=== PATIENT | male | born 1990 | race Caucasian/White ===

== ENCOUNTER 2018-05-12 15:01 | Inpatient (IN) | payer BC, OTHER ==
[2018-05-12] MEDS ORDERED: Bupivacaine 0.5% 50 ML MDV ONE (15:04)
[2018-05-12] MEDS ORDERED: Lidocaine 1% with EPINEPHrine 1:100,000 50 ML MDV ONE (15:04)
[2018-05-12] MEDS ORDERED: Lactated Ringers 1,000 ML IV SCH ×2 (15:30→17:45)
[2018-05-12] MEDS ORDERED: Propofol 200 MG/20 ML SDV ONE ×3 (15:31→16:09)
[2018-05-12] MEDS ORDERED: fentaNYL 100 MCG/2 ML SDV ONE (15:31)
[2018-05-12] MEDS ORDERED: Midazolam 1 MG/ML 2 ML SDV ONE ×2 (15:31→15:59)
[2018-05-12] MEDS ORDERED: Clindamycin Phosphate 900 MG in Sodium Chloride 0.9% 100 ML IV ONE (16:00)
[2018-05-12] MEDS ORDERED: Levofloxacin/Dextrose 5%-Water 500 MG in Premix Bag 1 BAG IV ONE (16:00)
[2018-05-12] MEDS ORDERED: Ondansetron 4 MG/2 ML SDV IVPUSH PRN (17:11)
[2018-05-12] MEDS: Acetaminophen/HYDROcodone 325-5 MG Tab PO PRN ×2 (17:49→21:54)
[2018-05-12] MEDS: Piperacillin/Tazobactam 3.375 GM in Sodium Chloride 0.9% 50 ML IV SCH ×2 (18:07→23:12)
--- NOTE | 2018-05-12 18:07 | PCM.HP ---
H&P History of Present Illness - General Date of Service: 05/12/18 Admit Problem/Dx: Admission Diagnosis/Problem Admission Diagnosis/Problem Abscess of abdominal wall Source of Information: Patient, Provider History Limitations: Reports: No Limitations - History of Present Illness Initial Comments - Free Text/Narative: This 27 year old white male told me he has had a painful suprapubic area associated he thinks with an ingrown hair. He developed pain, swelling and erythema in the area with so much pain that he has difficulty walking. He has not felt chilled. He went to the [facility] walk in clinic and was referred to surgery for drainage of this obvious suprapubic abscess. Onset of Symptoms: Reports: Gradual (Over five days. He says he "squeezed the ingrown hair trying to clear it.") Duration of Symptoms: Reports: Day(s): (Five), Getting Worse Location: Reports: Abdomen (Suprapubic area. ) Quality: Reports: Burning, Sharp Severity: Severe Improves with: Reports: None Worsens with: Reports: Other (Touch) Associated Symptoms: Reports: No Other Symptoms Right Lower Abdomen Pain Score (Numeric/FACES): 4 - Related Data Allergies/Adverse Reactions: Allergies Allergy/AdvReac Type Severity Reaction Status Date / Time No Known Allergies Allergy Verified 05/12/18 15:20 Home Medications: Home Meds NK [No Known Home Meds] 01/09/13 [History] Past Medical History - Past Health History Medical/Surgical History: Denies Medical/Surgical History Gastrointestinal History: Reports: GERD Musculoskeletal History: Reports: Other (See Below) Other Musculoskeletal History: chronic knee pain, from accident last summer, left knee torn ACL Neurological History: Reports: Concussion, Migraines Dermatologic History: Reports: Other (See Below) Other Dermatologic History: abdominal abscess - Past Surgical History Neurological Surgical History: Reports: None Social & Family History - Family History Family Medical History: Noncontributory - Tobacco Use Smoking Status *Q: Current Every Day Smoker Years of Tobacco use: 10 Packs/Tins Daily: 0.2 - Caffeine Use Caffeine Use: Reports: Soda - Recreational Drug Use Recreational Drug Use: Yes Drug Use in Last 12 Months: Yes Recreational Drug Type: Reports: Marijuana/Hashish Other Recreational Drug Type: 3-4 days since last marijuana use H&P Review of Systems - Review of Systems: Review Of Systems: See Below General: Reports: Other (Suprapubic pain) HEENT: Reports: No Symptoms Pulmonary: Reports: No Symptoms Cardiovascular: Reports: No Symptoms Gastrointestinal: Reports: No Symptoms Genitourinary: Reports: No Symptoms Musculoskeletal: Reports: No Symptoms Skin: Reports: Erythema (Suprapubic), Other (Suprapubic abscess, induration measures 11 cm transverse and 6 cm longitudinal. ) Psychiatric: Reports: No Symptoms Neurological: Reports: No Symptoms Hematologic/Lymphatic: Reports: No Symptoms Immunologic: Reports: No Symptoms Exam - Exam Exam: See Below - Vital Signs Vital Signs: Last Vital Signs Temp 100.8 F H 05/12/18 17:54 Pulse 111 H 05/12/18 17:54 Resp 18 05/12/18 17:54 BP 111/77 05/12/18 17:54 Pulse Ox 96 05/12/18 17:54 Weight: 140 lb 0.002 oz - Exam Quality Assessment: DVT Prophylaxis, Skin Breakdown (Suprapubic abscess) HEENT: Conjunctiva Clear, Hearing Intact Neck: Supple, Trachea Midline Lungs: Clear to Auscultation Cardiovascular: Regular Rate, Regular Rhythm, Tachycardia GI/Abdominal Exam: Normal Bowel Sounds, Soft, Tender (Suprapubic area. ) Back Exam: Normal Inspection, Full Range of Motion Extremities: Normal Inspection (Erythema in upper thighs right greater than left ) Skin: Warm, Other (Suprapubic abscess 11X6 cm with erythema of the area and upper thighs.) Neuro Extensive - Mental Status: Alert, Oriented x3, Normal Mood/Affect, Normal Cognition Psychiatric: Alert, Normal Affect, Normal Mood - Patient Data Lab Results Last 24 hrs: Laboratory Results - last 24 hr 05/12/18 05/12/18 05/12/18 Range/Units 15:00 15:00 15:14 WBC 35.4 H* (4.5-11.0) K/uL RBC 5.17 (4.30-5.90) M/uL Hgb 15.0 (12.0-15.0) g/dL Hct 46.1 (40.0-54.0) % MCV 89 (80-98) fL MCH 29 (27-31) pg MCHC 33 (32-36) % Plt Count 291 (150-400) K/uL Sodium 135 L (140-148) mmol/L Potassium 3.3 L (3.6-5.2) mmol/L Chloride 95 L (100-108) mmol/L Carbon Dioxide 27 (21-32) mmol/L Anion Gap 16.3 H (5.0-14.0) mmol/L BUN 12 (7-18) mg/dL Creatinine 1.2 (0.8-1.3) mg/dL Est Cr Clr Drug Dosing 82.32 mL/min Estimated GFR (MDRD) > 60 (>60) Glucose 110 H (74-106) mg/dL Lactic Acid 2.3 H (0.4-2.0) mmol/L Calcium 9.1 (8.5-10.1) mg/dL Total Bilirubin 1.0 (0.2-1.0) mg/dL AST 15 (15-37) U/L ALT 15 (12-78) U/L Alkaline Phosphatase 72 (46-116) U/L Total Protein 7.7 (6.4-8.2) g/dL Albumin 3.8 (3.4-5.0) g/dL Globulin 3.9 H (2.3-3.5) g/dL Albumin/Globulin Ratio 1.0 L (1.2-2.2) Result Diagrams: 05/12/18 15:00 05/12/18 15:00 Gregg Results Last 24 hrs: Microbiology 05/12/18 16:40 Gram Stain - Final Groin, Unspecified - Problem List (1) Abscess SNOMED Code(s): 360259258 ICD Code: L02.91 - CUTANEOUS ABSCESS, UNSPECIFIED Status: Acute Current Visit: Yes (2) Cellulitis of abdominal wall SNOMED Code(s): 04215196 ICD Code: L03.311 - CELLULITIS OF ABDOMINAL WALL Status: Acute Current Visit: Yes Problem List Initiated/Reviewed/Updated: Yes Orders Last 24hrs: Active Orders 24 hr Category Date Time Status Patient Status [ADT] Routine ADT 05/12/18 17:11 Active Ambulate [RC] ASDIRECTED Care 05/12/18 17:11 Active Ambulate [RC] PER UNIT ROUTINE Care 05/12/18 17:11 Active Antiembolic Devices [RC] .Routine Care 05/12/18 17:16 Active Dietary Supplements [RC] BIDMEALS Care 05/12/18 17:35 Active Dorsiflex/Plantar flex x 10 [RC] QSHIFT Care 05/12/18 17:11 Active Head of Bed Elevation [RC] CONTINUOUS Care 05/12/18 17:11 Active IS (RT) [RT Incentive Spirometry] [RC] ASDIRECTED Care 05/12/18 08:00 Active Intake and Output [RC] Q4HR Care 05/12/18 17:12 Active Notify Provider Consults [RC] ASDIRECTED Care 05/12/18 17:38 Active Notify Provider Vital Signs [RC] PRN Care 05/12/18 17:12 Active Oxygen Therapy [RC] PRN Care 05/12/18 17:11 Active Pneumonia Education [RC] UPON Care 05/12/18 17:11 Active RT Incentive Spirometry [RC] Q1HWA Care 05/12/18 17:11 Active Turn, Cough, Deep Breathe [RC] Q1HWA Care 05/12/18 17:11 Active Up With Assistance [RC] ASDIRECTED Care 05/12/18 17:11 Active Up ad Sofia [RC] ASDIRECTED Care 05/12/18 17:11 Active Up to Chair [RC] TIDMEALS Care 05/12/18 17:11 Active VTE/DVT Education [RC] Click to Edit Care 05/12/18 17:16 Active Vital Signs [RC] PER UNIT ROUTINE Care 05/12/18 17:11 Active Consult to Physician [CONS] Urgent Cons 05/12/18 17:36 Ordered Respiratory Care Assess and Treatment [CONS] Routine Cons 05/12/18 17:11 Active Regular Diet [DIET] Diet 05/12/18 Dinner Active BASIC METABOLIC PANEL,BMP [CHEM] AM Lab 05/13/18 05:11 Ordered CBC WITH AUTO DIFF [HEME] AM Lab 05/13/18 05:11 Ordered CULTURE ANAEROBIC [RM] Routine Lab 05/12/18 16:40 Results CULTURE BLOOD [BC] Urgent Lab 05/12/18 15:37 Received CULTURE BLOOD [BC] Urgent Lab 05/12/18 15:37 Received CULTURE WOUND + SMEAR [RM] Routine Lab 05/12/18 16:40 Results LACTIC ACID [CHEM] Routine Lab 05/12/18 22:00 Ordered LACTIC ACID [CHEM] Routine Lab 05/13/18 05:10 Ordered Acetaminophen/HYDROcodone [[place]one 325-5 MG] Med 05/12/18 17:11 Active 2 tab PO Q4H PRN Docusate Sodium [Colace] Med 05/12/18 17:11 Active 100 mg PO BID PRN Lactated Ringers [Ringers, Lactated] 1,000 ml Med 05/12/18 17:45 Active IV ASDIRECTED Linezolid [Zyvox] 600 mg Med 05/12/18 18:00 Active Premix Bag 1 bag IV Q12H Ondansetron [Zofran] Med 05/12/18 17:11 Active 4 mg IVPUSH Q6H PRN Piperacillin/Tazobactam [Zosyn] 3.375 gm Med 05/12/18 18:00 Active Sodium Chloride 0.9% [Normal Saline] 50 ml IV Q6H Blood Culture x2 Reflex Set [OM.PC] Urgent Oth 05/12/18 15:29 Ordered DVT/VTE Prophylaxis Reflex [OM.PC] Per Unit Routine Oth 05/12/18 17:14 Ordered SCD [Sequential Compression Device] [OM.PC] Routine Oth 05/12/18 08:00 Ordered Sequential Compression Device [OM.PC] Routine Oth 05/12/18 17:11 Ordered Resuscitation Status Routine Resus Stat 05/12/18 17:11 Ordered Medication Orders Hydrocodone Bitart/Acetaminophen ([place] 325-5 Mg) 2 tab PO Q4H PRN PRN Reason: Pain (moderate 4-6) Last Admin: 05/12/18 17:49 Dose: 2 tab Docusate Sodium (Colace) 100 mg PO BID PRN PRN Reason: Constipation Lactated Ringer's (Ringers, Lactated) 1,000 mls @ 500 mls/hr IV ASDIRECTED [facility] Last Admin: 05/12/18 18:02 Dose: 500 mls/hr Linezolid 600 mg/ Premix 300 mls @ 300 mls/hr IV Q12H [facility] Stop: 05/18/18 06:59 Piperacillin Sod/Tazobactam (Sod 3.375 gm/ Sodium Chloride) 50 mls @ 100 mls/ hr IV Q6H [facility] Stop: 05/18/18 12:29 Ondansetron HCl (Zofran) 4 mg IVPUSH Q6H PRN PRN Reason: Nausea/Vomiting Assessment/Plan Comment:: Abscess of suprapubic area with cellulitis. Admit to OR for incision and drainage and then into hospital for IV antibiotics.
[2018-05-12] MEDS ORDERED: Potassium Chloride 20 MEQ Tab.ER PO ONE (18:38)
--- NOTE | 2018-05-12 18:52 | OR ---
DATE OF PROCEDURE: 05/12/2018 PREOPERATIVE DIAGNOSES: Suprapubic abscess with cellulitis, sepsis. POSTOPERATIVE DIAGNOSES: Suprapubic abscess with cellulitis, sepsis. PROCEDURE PERFORMED: Incision and drainage of a suprapubic abscess. The induration measured 11 x 6 cm. An elliptical incision of 7 cm was used to drain the purulent material SURGEON: Mingo Gallardo MD. ANESTHESIA: IV anesthesia with monitored anesthesia care. INDICATION: This 27-year-old white male told me he has had five days of increasing pain in his suprapubic area. He thinks it is related to an ingrown hair. He did try to squeeze the area. The pain became so bad that it caused him to come to the walk-in clinic today, who referred him to surgery for drainage of an abscess. In the walk-in clinic, he was noted to have a temperature of 99.6. The area of erythema over his suprapubic area goes into his upper thighs. There was a large area of deep erythema with induration in the suprapubic area, with induration measuring 11 cm transversely and 6 cm longitudinally. There appears to be area of necrosis in the very middle, which is fairly small, consistent with ingrown hair or spider bite, which became severely infected. He was brought to the hospital, into the outpatient area to get prepared for surgery with IV antibiotics given. He had shaking chills. He was found to have a white count of 35,400. His lactic acid was 2.3. He was taken to the operating room for incision and drainage of the suprapubic abscess. I counseled him for surgery with the possibility of having to do extensive resection if we encountered things like necrotizing fasciitis, and he gave his informed consent to proceed. DESCRIPTION OF PROCEDURE: After adequate IV anesthesia was obtained, the patient's lower abdomen, groin, and genitalia as well as upper thighs were prepped and draped in the usual sterile fashion. Time-out was held. Lidocaine 1% with epinephrine in a 50:50 mix with 0.5% Marcaine was infiltrated over the area of maximal induration in the suprapubic area. A transverse elliptical incision was made about 7 cm long. The overlying skin was excised and sent to pathology. We encountered purulent material, however, it appeared to be invading the tissues. There was no obvious abscess cavity. We dissected it and broke all the little loculations up. Aerobic and anaerobic cultures as well as Gram stain were sent to the laboratory. The incision was irrigated and suctioned dry. We packed it with 0.5 inch iodoform gauze. A sterile dressing was applied. He tolerated the procedure well and was taken to the recovery room in fair condition having tolerated the procedure well. Mingo Gallardo MD /[id number] MTDOpal
--- NOTE | 2018-05-12 19:14 | PCM.CONSN ---
- General Info Date of Service: 05/12/18 Functional Status: Reports: Tolerating Diet, Incentive Spirometry - Review of Systems General: Reports: Fever (T-max 38.2), Fatigue HEENT: Reports: No Symptoms Pulmonary: Reports: Cough, Other (tobacco use, declines nicotine patch) Cardiovascular: Reports: No Symptoms Gastrointestinal: Reports: Abdominal Pain Genitourinary: Reports: No Symptoms Musculoskeletal: Reports: No Symptoms Skin: Reports: No Symptoms Neurological: Reports: No Symptoms Psychiatric: Reports: No Symptoms - Patient Data Vitals - Most Recent: Last Vital Signs Temp 38.2 C H 05/12/18 17:54 Pulse 103 H 05/12/18 18:25 Resp 16 05/12/18 18:25 BP 122/69 05/12/18 18:25 Pulse Ox 98 05/12/18 18:25 Weight - Most Recent: 63.503 kg Lab Results Last 24 Hours: Laboratory Results - last 24 hr 05/12/18 05/12/18 05/12/18 Range/Units 15:00 15:00 15:14 WBC 35.4 H* (4.5-11.0) K/uL RBC 5.17 (4.30-5.90) M/uL Hgb 15.0 (12.0-15.0) g/dL Hct 46.1 (40.0-54.0) % MCV 89 (80-98) fL MCH 29 (27-31) pg MCHC 33 (32-36) % Plt Count 291 (150-400) K/uL Sodium 135 L (140-148) mmol/L Potassium 3.3 L (3.6-5.2) mmol/L Chloride 95 L (100-108) mmol/L Carbon Dioxide 27 (21-32) mmol/L Anion Gap 16.3 H (5.0-14.0) mmol/L BUN 12 (7-18) mg/dL Creatinine 1.2 (0.8-1.3) mg/dL Est Cr Clr Drug Dosing 82.32 mL/min Estimated GFR (MDRD) > 60 (>60) Glucose 110 H (74-106) mg/dL Lactic Acid 2.3 H (0.4-2.0) mmol/L Calcium 9.1 (8.5-10.1) mg/dL Total Bilirubin 1.0 (0.2-1.0) mg/dL AST 15 (15-37) U/L ALT 15 (12-78) U/L Alkaline Phosphatase 72 (46-116) U/L Total Protein 7.7 (6.4-8.2) g/dL Albumin 3.8 (3.4-5.0) g/dL Globulin 3.9 H (2.3-3.5) g/dL Albumin/Globulin Ratio 1.0 L (1.2-2.2) Gregg Results Last 24 Hours: Microbiology 05/12/18 16:40 Gram Stain - Final Groin, Unspecified Med Orders - Current: Current Medications Hydrocodone Bitart/Acetaminophen ([place] 325-5 Mg) 2 tab PO Q4H PRN PRN Reason: Pain (moderate 4-6) Last Admin: 05/12/18 17:49 Dose: 2 tab Docusate Sodium (Colace) 100 mg PO BID PRN PRN Reason: Constipation Hydromorphone HCl (Dilaudid) 1 mg IVPUSH Q3H PRN PRN Reason: Abdominal Pain Lactated Ringer's (Ringers, Lactated) 1,000 mls @ 500 mls/hr IV ASDIRECTED [facility] Last Admin: 05/12/18 18:02 Dose: 500 mls/hr Linezolid 600 mg/ Premix 300 mls @ 300 mls/hr IV Q12H [facility] Stop: 05/18/18 06:59 Piperacillin Sod/Tazobactam (Sod 3.375 gm/ Sodium Chloride) 50 mls @ 100 mls/ hr IV Q6H [facility] Stop: 05/18/18 12:29 Last Admin: 05/12/18 18:07 Dose: 100 mls/hr Ondansetron HCl (Zofran) 4 mg IVPUSH Q6H PRN PRN Reason: Nausea/Vomiting Discontinued Medications Bupivacaine HCl (Marcaine 0.5%) Confirm Administered Dose 50 ml .ROUTE .STK-MED ONE Stop: 05/12/18 15:05 Last Admin: 05/12/18 16:23 Dose: 5 ml Fentanyl (Sublimaze) Confirm Administered Dose 100 mcg .ROUTE .STK-MED ONE Stop: 05/12/18 15:32 Lactated Ringer's (Ringers, Lactated) 1,000 mls @ 150 mls/hr IV ASDIRECTED [facility] Last Admin: 05/12/18 15:46 Dose: 500 mls/hr Clindamycin Phosphate 900 mg/ (Sodium Chloride) 106 mls @ 200 mls/hr IV ONETIME ONE Stop: 05/12/18 16:31 Last Admin: 05/12/18 15:46 Dose: 200 mls/hr Levofloxacin/Dextrose 500 mg/ (Premix) 100 mls @ 100 mls/hr IV ONETIME ONE Stop: 05/12/18 16:59 Last Admin: 05/12/18 15:46 Dose: 100 mls/hr Lidocaine/Epinephrine (Xylocaine 1% With Epinephrine 1:100,000) Confirm Administered Dose 50 ml .ROUTE .STK-MED ONE Stop: 05/12/18 15:05 Last Admin: 05/12/18 16:23 Dose: 5 ml Midazolam HCl (Versed 1 Mg/Ml) Confirm Administered Dose 2 mg .ROUTE .STK-MED ONE Stop: 05/12/18 15:32 Midazolam HCl (Versed 1 Mg/Ml) Confirm Administered Dose 2 mg .ROUTE .STK-MED ONE Stop: 05/12/18 16:00 Potassium Chloride (Klor-Con M20) 20 meq PO ONETIME ONE Stop: 05/12/18 18:39 Propofol (Diprivan 20 Ml) Confirm Administered Dose 200 mg .ROUTE .STK-MED ONE Stop: 05/12/18 15:32 Propofol (Diprivan 20 Ml) Confirm Administered Dose 200 mg .ROUTE .STK-MED ONE Stop: 05/12/18 16:01 Propofol (Diprivan 20 Ml) Confirm Administered Dose 200 mg .ROUTE .STK-MED ONE Stop: 05/12/18 16:10 - Exam Quality Assessment: DVT Prophylaxis (SCD) General: Alert, Oriented, Cooperative, Mild Distress (reports pain not controlled with Hydrocodone 5/325mg 2 tabs po) HEENT: Pupils Equal, Pupils Reactive, EOMI, Mucous Membr. Moist/[place] Lungs: Clear to Auscultation, Normal Respiratory Effort, Other (poor cough noted ) Cardiovascular: Regular Rate, Regular Rhythm, No Murmurs GI/Abdominal Exam: Other (abdominal dressing, with small amount of bleeding thru ABD dressing. abdomen is painful. reports feeling a lot of pressure in low abdomen.) (Male) Exam: Circumcised, Scrotal Swelling (scrotal and penis with edema) Extremities: Normal Inspection, Normal Range of Motion, Non-Tender, No Pedal Edema, Normal Capillary Refill Peripheral Pulses: 2+: Radial (L), Radial (R), Dorsalis Pedis (L), Dorsalis Pedis (R) Skin: Warm, Dry, Other (I&D of abscess low pelvis/groin) Wound/Incisions: Drainage (red small amount thru ABD dressing. just return from surgery.) Neurological: No New Focal Deficit, Normal Speech, Normal Tone, Strength Equal Bilateral Psy/Mental Status: Alert, Normal Affect, Normal Mood Consult PN Assessment/Plan POD#: 0 Procedures: Procedures CHEST X-RAY 2VW FRONTAL&LATL (01/21/15) EMERGENCY DEPT VISIT (10/21/15) EMERGENCY DEPT VISIT (01/21/15) EMERGENCY DEPT VISIT (02/02/13) EMERGENCY DEPT VISIT (01/09/13) THER/PROPH/DIAG INJ SC/IM (10/21/15) X-RAY EXAM KNEE 4 OR MORE (08/12/14) X-RAY EXAM OF KNEE 3 (10/21/15) (1) Abscess of suprapubic region SNOMED Code(s): 18938189107972061 Code(s): L02.219 - CUTANEOUS ABSCESS OF TRUNK, UNSPECIFIED Priority: High Current Visit: Yes (2) Sepsis SNOMED Code(s): 37605421 Code(s): A41.9 - SEPSIS, UNSPECIFIED ORGANISM Priority: High Current Visit: Yes Qualifiers: Sepsis type: sepsis due to unspecified organism Qualified Code(s): A41.9 - Sepsis, unspecified organism (3) Hypokalemia SNOMED Code(s): 23530861 Code(s): E87.6 - HYPOKALEMIA Priority: Low Current Visit: Yes (4) Tobacco dependence due to cigarettes SNOMED Code(s): 96682993991555764 Code(s): F17.210 - NICOTINE DEPENDENCE, CIGARETTES, UNCOMPLICATED Priority : Low Current Visit: Yes Problem List Initiated/Reviewed/Updated: Yes My Orders Last 24 Hours: My Active Orders 05/12/18 19:07 HYDROmorphone [Dilaudid] 1 mg IVPUSH Q3H PRN Plan: S/P I&D Suprapubic abscess 11x6 cm, Sepsis -continue IV antibiotics -IV LR at 999/ml x 1 liter, then at rate 150ml/hr -medicate for pain. Hydrocodone po evry 4 hours prn -IV Dilaudid 1mg IV every 3 hrs prn for pain not controlled by Hydrocodone -advised to use IS -treat fever with Tylenol -monitor vital signs closely -Blood cultures x2 and wound cultures pending -Lactic acid at 2.3, repeat labs at 10 pm and 0500am -am labs CBC, BMP Hypokalemia, potassium 3.3 -order Potassium 20 meq po once -recheck potassium in am. Tobacco use -declines patch
[2018-05-12] MEDS: Linezolid 600 MG in Premix Bag 1 BAG IV SCH (19:36)
[2018-05-12] MEDS: HYDROmorphone 1 MG/ML Syringe IVPUSH PRN (21:39)
[2018-05-12] MEDS: Lactated Ringers 1,000 ML IV SCH (21:43)
[2018-05-13] MEDS: Acetaminophen/HYDROcodone 325-5 MG Tab PO PRN ×4 (02:18→15:54)
[2018-05-13] MEDS: Lactated Ringers 1,000 ML IV SCH ×2 (03:45→11:44)
[2018-05-13] MEDS: HYDROmorphone 1 MG/ML Syringe IVPUSH PRN ×3 (05:30→19:49)
[2018-05-13] MEDS: Piperacillin/Tazobactam 3.375 GM in Sodium Chloride 0.9% 50 ML IV SCH (05:33)
[2018-05-13] MEDS: Linezolid 600 MG in Premix Bag 1 BAG IV SCH ×2 (06:21→17:07)
--- NOTE | 2018-05-13 06:46 | PCM.SURGPN ---
- General Info Date of Service: 05/13/18 Date of Surgery/Procedure: 05/12/18 POD#: 1 Post-Op Diagnosis: Suprapubic abscess with cellulitis Admission Diagnosis/Problem: Sepsis affecting skin Functional Status: Reports: Pain Controlled, Tolerating Diet, Ambulating, Urinating, Incentive Spirometry - Review of Systems General: Reports: Other (Feels a little better) HEENT: Reports: No Symptoms Pulmonary: Reports: No Symptoms Cardiovascular: Reports: No Symptoms Gastrointestinal: Reports: No Symptoms Genitourinary: Reports: No Symptoms Musculoskeletal: Reports: No Symptoms Skin: Reports: Other (Erythema still present. Dressing with drainage. ) Neurological: Reports: No Symptoms Psychiatric: Reports: No Symptoms - Patient Data Vitals - Most Recent: Last Vital Signs Temp 99.5 F 05/13/18 03:00 Pulse 88 05/13/18 03:00 Resp 16 05/13/18 03:00 BP 109/64 05/13/18 03:00 Pulse Ox 97 05/13/18 03:00 Weight - Most Recent: 140 lb 0.002 oz I&O - Last 24 Hours: Intake & Output 05/12/18 05/12/18 05/13/18 14:59 22:59 06:59 Intake Total 300 3270 Output Total 700 Balance -400 3270 Lab Results Last 24 Hrs: Laboratory Results - last 24 hr 05/12/18 05/12/18 05/12/18 Range/Units 15:00 15:00 15:14 WBC 35.4 H* (4.5-11.0) K/uL RBC 5.17 (4.30-5.90) M/uL Hgb 15.0 (12.0-15.0) g/dL Hct 46.1 (40.0-54.0) % MCV 89 (80-98) fL MCH 29 (27-31) pg MCHC 33 (32-36) % Plt Count 291 (150-400) K/uL Neut % (Auto) (36-66) % Lymph % (Auto) (24-44) % Long % (Auto) (2-6) % Eos % (Auto) (2-4) % Baso % (Auto) (0-1) % Sodium 135 L (140-148) mmol/L Potassium 3.3 L (3.6-5.2) mmol/L Chloride 95 L (100-108) mmol/L Carbon Dioxide 27 (21-32) mmol/L Anion Gap 16.3 H (5.0-14.0) mmol/L BUN 12 (7-18) mg/dL Creatinine 1.2 (0.8-1.3) mg/dL Est Cr Clr Drug Dosing 82.32 mL/min Estimated GFR (MDRD) > 60 (>60) Glucose 110 H (74-106) mg/dL Lactic Acid 2.3 H (0.4-2.0) mmol/L Calcium 9.1 (8.5-10.1) mg/dL Total Bilirubin 1.0 (0.2-1.0) mg/dL AST 15 (15-37) U/L ALT 15 (12-78) U/L Alkaline Phosphatase 72 (46-116) U/L Total Protein 7.7 (6.4-8.2) g/dL Albumin 3.8 (3.4-5.0) g/dL Globulin 3.9 H (2.3-3.5) g/dL Albumin/Globulin Ratio 1.0 L (1.2-2.2) 05/12/18 05/13/18 05/13/18 Range/Units 22:00 05:00 05:00 WBC 26.7 H (4.5-11.0) K/uL RBC 4.48 (4.30-5.90) M/uL Hgb 13.3 (12.0-15.0) g/dL Hct 40.6 (40.0-54.0) % MCV 91 (80-98) fL MCH 30 (27-31) pg MCHC 33 (32-36) % Plt Count 246 (150-400) K/uL Neut % (Auto) 83 H (36-66) % Lymph % (Auto) 8 L (24-44) % Long % (Auto) 8 H (2-6) % Eos % (Auto) 1 L (2-4) % Baso % (Auto) 0 (0-1) % Sodium 139 L (140-148) mmol/L Potassium 4.1 (3.6-5.2) mmol/L Chloride 103 (100-108) mmol/L Carbon Dioxide 30 (21-32) mmol/L Anion Gap 10.1 (5.0-14.0) mmol/L BUN 9 (7-18) mg/dL Creatinine 1.2 (0.8-1.3) mg/dL Est Cr Clr Drug Dosing 82.32 mL/min Estimated GFR (MDRD) > 60 (>60) Glucose 108 H (74-106) mg/dL Lactic Acid 1.3 (0.4-2.0) mmol/L Calcium 9.0 (8.5-10.1) mg/dL Total Bilirubin (0.2-1.0) mg/dL AST (15-37) U/L ALT (12-78) U/L Alkaline Phosphatase (46-116) U/L Total Protein (6.4-8.2) g/dL Albumin (3.4-5.0) g/dL Globulin (2.3-3.5) g/dL Albumin/Globulin Ratio (1.2-2.2) 05/13/18 Range/Units 05:00 WBC (4.5-11.0) K/uL RBC (4.30-5.90) M/uL Hgb (12.0-15.0) g/dL Hct (40.0-54.0) % MCV (80-98) fL MCH (27-31) pg MCHC (32-36) % Plt Count (150-400) K/uL Neut % (Auto) (36-66) % Lymph % (Auto) (24-44) % Long % (Auto) (2-6) % Eos % (Auto) (2-4) % Baso % (Auto) (0-1) % Sodium (140-148) mmol/L Potassium (3.6-5.2) mmol/L Chloride (100-108) mmol/L Carbon Dioxide (21-32) mmol/L Anion Gap (5.0-14.0) mmol/L BUN (7-18) mg/dL Creatinine (0.8-1.3) mg/dL Est Cr Clr Drug Dosing mL/min Estimated GFR (MDRD) (>60) Glucose (74-106) mg/dL Lactic Acid 1.0 (0.4-2.0) mmol/L Calcium (8.5-10.1) mg/dL Total Bilirubin (0.2-1.0) mg/dL AST (15-37) U/L ALT (12-78) U/L Alkaline Phosphatase (46-116) U/L Total Protein (6.4-8.2) g/dL Albumin (3.4-5.0) g/dL Globulin (2.3-3.5) g/dL Albumin/Globulin Ratio (1.2-2.2) Gregg Results Last 24 Hrs: Microbiology 05/12/18 16:40 Gram Stain - Final Groin, Unspecified Med Orders - Current: Current Medications Hydrocodone Bitart/Acetaminophen ([place] 325-5 Mg) 2 tab PO Q4H PRN PRN Reason: Pain (moderate 4-6) Last Admin: 05/13/18 06:21 Dose: 2 tab Docusate Sodium (Colace) 100 mg PO BID PRN PRN Reason: Constipation Hydromorphone HCl (Dilaudid) 1 mg IVPUSH Q3H PRN PRN Reason: Abdominal Pain Last Admin: 05/13/18 05:30 Dose: 1 mg Linezolid 600 mg/ Premix 300 mls @ 300 mls/hr IV Q12H [facility] Stop: 05/18/18 06:59 Last Admin: 05/13/18 06:21 Dose: 300 mls/hr Piperacillin Sod/Tazobactam (Sod 3.375 gm/ Sodium Chloride) 50 mls @ 100 mls/ hr IV Q6H [facility] Stop: 05/18/18 12:29 Last Admin: 05/13/18 05:33 Dose: 100 mls/hr Lactated Ringer's (Ringers, Lactated) 1,000 mls @ 150 mls/hr IV ASDIRECTED [facility] Last Admin: 05/13/18 03:45 Dose: 150 mls/hr Ondansetron HCl (Zofran) 4 mg IVPUSH Q6H PRN PRN Reason: Nausea/Vomiting Discontinued Medications Bupivacaine HCl (Marcaine 0.5%) Confirm Administered Dose 50 ml .ROUTE .STK-MED ONE Stop: 05/12/18 15:05 Last Admin: 05/12/18 16:23 Dose: 5 ml Fentanyl (Sublimaze) Confirm Administered Dose 100 mcg .ROUTE .STK-MED ONE Stop: 05/12/18 15:32 Lactated Ringer's (Ringers, Lactated) 1,000 mls @ 150 mls/hr IV ASDIRECTED [facility] Last Admin: 05/12/18 15:46 Dose: 500 mls/hr Clindamycin Phosphate 900 mg/ (Sodium Chloride) 106 mls @ 200 mls/hr IV ONETIME ONE Stop: 05/12/18 16:31 Last Admin: 05/12/18 15:46 Dose: 200 mls/hr Levofloxacin/Dextrose 500 mg/ (Premix) 100 mls @ 100 mls/hr IV ONETIME ONE Stop: 05/12/18 16:59 Last Admin: 05/12/18 15:46 Dose: 100 mls/hr Lactated Ringer's (Ringers, Lactated) 1,000 mls [facility] Last Admin: 05/12/18 18:02 Dose: 500 mls/hr Lidocaine/Epinephrine (Xylocaine 1% With Epinephrine 1:100,000) Confirm Administered Dose 50 ml .ROUTE .STK-MED ONE Stop: 05/12/18 15:05 Last Admin: 05/12/18 16:23 Dose: 5 ml Midazolam HCl (Versed 1 Mg/Ml) Confirm Administered Dose 2 mg .ROUTE .STK-MED ONE Stop: 05/12/18 15:32 Midazolam HCl (Versed 1 Mg/Ml) Confirm Administered Dose 2 mg .ROUTE .STK-MED ONE Stop: 05/12/18 16:00 Potassium Chloride (Klor-Con M20) 20 meq PO ONETIME ONE Stop: 05/12/18 18:39 Last Admin: 05/12/18 20:28 Dose: 20 meq Propofol (Diprivan 20 Ml) Confirm Administered Dose 200 mg .ROUTE .STK-MED ONE Stop: 05/12/18 15:32 Propofol (Diprivan 20 Ml) Confirm Administered Dose 200 mg .ROUTE .STK-MED ONE Stop: 05/12/18 16:01 Propofol (Diprivan 20 Ml) Confirm Administered Dose 200 mg .ROUTE .STK-MED ONE Stop: 05/12/18 16:10 - Exam Wound/Incisions: Drainage, Erythema General: Alert, Oriented, No Acute Distress Lungs: Clear to Auscultation, Normal Respiratory Effort Cardiovascular: Regular Rate, Regular Rhythm GI/Abdominal Exam: Normal Bowel Sounds, Soft Extremities: Normal Inspection Skin: Warm, Dry, Other (Erythema continues) Neurological: No New Focal Deficit Psy/Mental Status: Alert, Normal Affect, Normal Mood - Problem List & Annotations (1) Abscess SNOMED Code(s): 231475089 Code(s): L02.91 - CUTANEOUS ABSCESS, UNSPECIFIED Status: Acute Current Visit: Yes (2) Cellulitis of abdominal wall SNOMED Code(s): 95886063 Code(s): L03.311 - CELLULITIS OF ABDOMINAL WALL Status: Acute Current Visit: Yes - Problem List Review Problem List Initiated/Reviewed/Updated: Yes - My Orders Last 24 Hours: Active Orders 24 hr Category Date Time Status Patient Status [ADT] Routine ADT 05/12/18 17:11 Active Ambulate [RC] ASDIRECTED Care 05/12/18 17:11 Active Ambulate [RC] PER UNIT ROUTINE Care 05/12/18 17:11 Active Antiembolic Devices [RC] .Routine Care 05/12/18 17:16 Active Dietary Supplements [RC] BIDMEALS Care 05/12/18 17:35 Active Dorsiflex/Plantar flex x 10 [RC] QSHIFT Care 05/12/18 17:11 Active Head of Bed Elevation [RC] CONTINUOUS Care 05/12/18 17:11 Active IS (RT) [RT Incentive Spirometry] [RC] ASDIRECTED Care 05/12/18 08:00 Active Intake and Output [RC] Q4HR Care 05/12/18 17:12 Active Notify Provider Consults [RC] ASDIRECTED Care 05/12/18 17:38 Active Notify Provider Vital Signs [RC] PRN Care 05/12/18 17:12 Active Oxygen Therapy [RC] PRN Care 05/12/18 17:11 Active Pneumonia Education [RC] UPON Care 05/12/18 17:11 Active Turn, Cough, Deep Breathe [RC] Q1HWA Care 05/12/18 17:11 Active Up With Assistance [RC] ASDIRECTED Care 05/12/18 17:11 Active Up ad Sofia [RC] ASDIRECTED Care 05/12/18 17:11 Active Up to Chair [RC] TIDMEALS Care 05/12/18 17:11 Active VTE/DVT Education [RC] Click to Edit Care 05/12/18 17:16 Active Vital Signs [RC] Q4H Care 05/12/18 17:11 Active Consult to Physician [CONS] Urgent Cons 05/12/18 17:36 Ordered Respiratory Care Assess and Treatment [CONS] Routine Cons 05/12/18 17:11 Active Regular Diet [DIET] Diet 05/12/18 Dinner Active CULTURE ANAEROBIC [RM] Routine Lab 05/12/18 16:40 Results CULTURE BLOOD [BC] Urgent Lab 05/12/18 15:37 Received CULTURE BLOOD [BC] Urgent Lab 05/12/18 15:37 Received CULTURE WOUND + SMEAR [RM] Routine Lab 05/12/18 16:40 Results Acetaminophen/HYDROcodone [[place] 325-5 MG] Med 05/12/18 17:11 Active 2 tab PO Q4H PRN Docusate Sodium [Colace] Med 05/12/18 17:11 Active 100 mg PO BID PRN HYDROmorphone [Dilaudid] Med 05/12/18 19:07 Active 1 mg IVPUSH Q3H PRN Lactated Ringers [Ringers, Lactated] 1,000 ml Med 05/12/18 19:45 Active IV ASDIRECTED Linezolid [Zyvox] 600 mg Med 05/12/18 18:00 Active Premix Bag 1 bag IV Q12H Ondansetron [Zofran] Med 05/12/18 17:11 Active 4 mg IVPUSH Q6H PRN Piperacillin/Tazobactam [Zosyn] 3.375 gm Med 05/12/18 18:00 Active Sodium Chloride 0.9% [Normal Saline] 50 ml IV Q6H Blood Culture x2 Reflex Set [OM.PC] Urgent Oth 05/12/18 15:29 Ordered DVT/VTE Prophylaxis Reflex [OM.PC] Per Unit Routine Oth 05/12/18 17:14 Ordered SCD [Sequential Compression Device] [OM.PC] Routine Oth 05/12/18 08:00 Ordered Sequential Compression Device [OM.PC] Routine Oth 05/12/18 17:11 Ordered Resuscitation Status Routine Resus Stat 05/12/18 17:11 Ordered Medication Orders Hydrocodone Bitart/Acetaminophen ([place] 325-5 Mg) 2 tab PO Q4H PRN PRN Reason: Pain (moderate 4-6) Last Admin: 05/13/18 06:21 Dose: 2 tab Admin: 05/13/18 02:18 Dose: 2 tab Admin: 05/12/18 21:54 Dose: 2 tab Admin: 05/12/18 17:49 Dose: 2 tab Docusate Sodium (Colace) 100 mg PO BID PRN PRN Reason: Constipation Hydromorphone HCl (Dilaudid) 1 mg IVPUSH Q3H PRN PRN Reason: Abdominal Pain Last Admin: 05/13/18 05:30 Dose: 1 mg Admin: 05/12/18 21:39 Dose: 1 mg Linezolid 600 mg/ Premix 300 mls @ 300 mls/hr IV Q12H [facility] Stop: 05/18/18 06:59 Last Admin: 05/13/18 06:21 Dose: 300 mls/hr Infusion: 05/12/18 20:36 Dose: 300 mls/hr Admin: 05/12/18 19:36 Dose: 300 mls/hr Piperacillin Sod/Tazobactam (Sod 3.375 gm/ Sodium Chloride) 50 mls @ 100 mls/ hr IV Q6H [facility] Stop: 05/18/18 12:29 Last Admin: 05/13/18 05:33 Dose: 100 mls/hr Admin: 05/12/18 23:12 Dose: 100 mls/hr Admin: 05/12/18 18:07 Dose: 100 mls/hr Lactated Ringer's (Ringers, Lactated) 1,000 mls @ 150 mls/hr IV ASDIRECTED [facility] Last Admin: 05/13/18 03:45 Dose: 150 mls/hr Infusion: 05/13/18 03:45 Dose: 150 mls/hr Admin: 05/12/18 21:43 Dose: 150 mls/hr Ondansetron HCl (Zofran) 4 mg IVPUSH Q6H PRN PRN Reason: Nausea/Vomiting - Assessment Assessment (Free Text/Narrative):: Gram stain with Gm + cocci. Lactic acid now normal. WBC down but still elevated at about 25K. Slowly improving. - Plan Plan (Free Text/Narrative):: Change dressing this PM. Continue antibiotics.
[2018-05-13] MEDS: Docusate Sodium 100 MG Cap PO PRN (11:12)
[2018-05-13] MEDS: Piperacillin/Tazobactam/Dext 3.375 GM in Premix Bag 1 BAG IV SCH ×2 (11:38→18:08)
--- NOTE | 2018-05-13 11:58 | PCM.CONSN ---
- General Info Date of Service: 05/13/18 Subjective Update: Russ is a 27-year-old gentleman who was admitted yesterday through the emergency department by Dr. Gallardo for IND of abscess and management of associated cellulitis. After surgical debridement he was brought to the medical surgical floor for ongoing management. Blood and wound cultures are pending. He' s been started on IV antibiotic therapy with Zyvox and Zosyn, pending culture results. White blood cell count is improved since admission and his lactic acid level has normalized. Functional Status: Reports: Pain Controlled, Ambulating, Urinating - Review of Systems General: Reports: Fever, Weakness, Chills Pulmonary: Reports: No Symptoms Cardiovascular: Reports: No Symptoms Gastrointestinal: Reports: Abdominal Pain, Decreased Appetite, Other (Surgical dressing in place). Denies: Diarrhea, Difficulty Swallowing, Nausea, Vomiting - Patient Data Vitals - Most Recent: Last Vital Signs Temp 98.3 F 05/13/18 11:00 Pulse 88 05/13/18 11:00 Resp 18 05/13/18 11:00 BP 119/63 05/13/18 11:00 Pulse Ox 95 05/13/18 11:00 Weight - Most Recent: 140 lb 0.002 oz I&O - Last 24 Hours: Intake & Output 05/12/18 05/13/18 05/13/18 22:59 06:59 14:59 Intake Total 300 3270 50 Output Total 700 Balance -400 3270 50 Lab Results Last 24 Hours: Laboratory Results - last 24 hr 05/12/18 05/12/18 05/12/18 Range/Units 15:00 15:00 15:14 WBC 35.4 H* (4.5-11.0) K/uL RBC 5.17 (4.30-5.90) M/uL Hgb 15.0 (12.0-15.0) g/dL Hct 46.1 (40.0-54.0) % MCV 89 (80-98) fL MCH 29 (27-31) pg MCHC 33 (32-36) % Plt Count 291 (150-400) K/uL Neut % (Auto) (36-66) % Lymph % (Auto) (24-44) % Pratt % (Auto) (2-6) % Eos % (Auto) (2-4) % Baso % (Auto) (0-1) % Sodium 135 L (140-148) mmol/L Potassium 3.3 L (3.6-5.2) mmol/L Chloride 95 L (100-108) mmol/L Carbon Dioxide 27 (21-32) mmol/L Anion Gap 16.3 H (5.0-14.0) mmol/L BUN 12 (7-18) mg/dL Creatinine 1.2 (0.8-1.3) mg/dL Est Cr Clr Drug Dosing 82.32 mL/min Estimated GFR (MDRD) > 60 (>60) Glucose 110 H (74-106) mg/dL Lactic Acid 2.3 H (0.4-2.0) mmol/L Calcium 9.1 (8.5-10.1) mg/dL Total Bilirubin 1.0 (0.2-1.0) mg/dL AST 15 (15-37) U/L ALT 15 (12-78) U/L Alkaline Phosphatase 72 (46-116) U/L Total Protein 7.7 (6.4-8.2) g/dL Albumin 3.8 (3.4-5.0) g/dL Globulin 3.9 H (2.3-3.5) g/dL Albumin/Globulin Ratio 1.0 L (1.2-2.2) 05/12/18 05/13/18 05/13/18 Range/Units 22:00 05:00 05:00 WBC 26.7 H (4.5-11.0) K/uL RBC 4.48 (4.30-5.90) M/uL Hgb 13.3 (12.0-15.0) g/dL Hct 40.6 (40.0-54.0) % MCV 91 (80-98) fL MCH 30 (27-31) pg MCHC 33 (32-36) % Plt Count 246 (150-400) K/uL Neut % (Auto) 83 H (36-66) % Lymph % (Auto) 8 L (24-44) % Pratt % (Auto) 8 H (2-6) % Eos % (Auto) 1 L (2-4) % Baso % (Auto) 0 (0-1) % Sodium 139 L (140-148) mmol/L Potassium 4.1 (3.6-5.2) mmol/L Chloride 103 (100-108) mmol/L Carbon Dioxide 30 (21-32) mmol/L Anion Gap 10.1 (5.0-14.0) mmol/L BUN 9 (7-18) mg/dL Creatinine 1.2 (0.8-1.3) mg/dL Est Cr Clr Drug Dosing 82.32 mL/min Estimated GFR (MDRD) > 60 (>60) Glucose 108 H (74-106) mg/dL Lactic Acid 1.3 (0.4-2.0) mmol/L Calcium 9.0 (8.5-10.1) mg/dL Total Bilirubin (0.2-1.0) mg/dL AST (15-37) U/L ALT (12-78) U/L Alkaline Phosphatase (46-116) U/L Total Protein (6.4-8.2) g/dL Albumin (3.4-5.0) g/dL Globulin (2.3-3.5) g/dL Albumin/Globulin Ratio (1.2-2.2) 05/13/18 Range/Units 05:00 WBC (4.5-11.0) K/uL RBC (4.30-5.90) M/uL Hgb (12.0-15.0) g/dL Hct (40.0-54.0) % MCV (80-98) fL MCH (27-31) pg MCHC (32-36) % Plt Count (150-400) K/uL Neut % (Auto) (36-66) % Lymph % (Auto) (24-44) % Pratt % (Auto) (2-6) % Eos % (Auto) (2-4) % Baso % (Auto) (0-1) % Sodium (140-148) mmol/L Potassium (3.6-5.2) mmol/L Chloride (100-108) mmol/L Carbon Dioxide (21-32) mmol/L Anion Gap (5.0-14.0) mmol/L BUN (7-18) mg/dL Creatinine (0.8-1.3) mg/dL Est Cr Clr Drug Dosing mL/min Estimated GFR (MDRD) (>60) Glucose (74-106) mg/dL Lactic Acid 1.0 (0.4-2.0) mmol/L Calcium (8.5-10.1) mg/dL Total Bilirubin (0.2-1.0) mg/dL AST (15-37) U/L ALT (12-78) U/L Alkaline Phosphatase (46-116) U/L Total Protein (6.4-8.2) g/dL Albumin (3.4-5.0) g/dL Globulin (2.3-3.5) g/dL Albumin/Globulin Ratio (1.2-2.2) Gregg Results Last 24 Hours: Microbiology 05/12/18 16:40 Gram Stain - Final Groin, Unspecified Med Orders - Current: Current Medications Hydrocodone Bitart/Acetaminophen ([place] 325-5 Mg) 2 tab PO Q4H PRN PRN Reason: Pain (moderate 4-6) Last Admin: 05/13/18 11:10 Dose: 2 tab Docusate Sodium (Colace) 100 mg PO BID PRN PRN Reason: Constipation Last Admin: 05/13/18 11:12 Dose: 100 mg Hydromorphone HCl (Dilaudid) 1 mg IVPUSH Q3H PRN PRN Reason: Abdominal Pain Last Admin: 05/13/18 05:30 Dose: 1 mg Linezolid 600 mg/ Premix 300 mls @ 300 mls/hr IV Q12H [facility] Stop: 05/18/18 06:59 Last Admin: 05/13/18 06:21 Dose: 300 mls/hr Piperacillin/Tazobactam/ (Dextrose 3.375 gm/ Premix) 50 mls @ 100 mls/hr IV Q6H [facility] Stop: 05/18/18 12:29 Last Admin: 05/13/18 11:38 Dose: 100 mls/hr Lactated Ringer's (Ringers, Lactated) 1,000 mls @ 75 mls/hr IV ASDIRECTED [facility] Lactobacillus Rhamnosus (Culturelle) 1 cap PO BID [facility] Ondansetron HCl (Zofran) 4 mg IVPUSH Q6H PRN PRN Reason: Nausea/Vomiting Discontinued Medications Bupivacaine HCl (Marcaine 0.5%) Confirm Administered Dose 50 ml .ROUTE .STK-MED ONE Stop: 05/12/18 15:05 Last Admin: 05/12/18 16:23 Dose: 5 ml Fentanyl (Sublimaze) Confirm Administered Dose 100 mcg .ROUTE .STK-MED ONE Stop: 05/12/18 15:32 Lactated Ringer's (Ringers, Lactated) 1,000 mls @ 150 mls/hr IV ASDIRECTED [facility] Last Admin: 05/12/18 15:46 Dose: 500 mls/hr Clindamycin Phosphate 900 mg/ (Sodium Chloride) 106 mls @ 200 mls/hr IV ONETIME ONE Stop: 05/12/18 16:31 Last Admin: 05/12/18 15:46 Dose: 200 mls/hr Levofloxacin/Dextrose 500 mg/ (Premix) 100 mls @ 100 mls/hr IV ONETIME ONE Stop: 05/12/18 16:59 Last Admin: 05/12/18 15:46 Dose: 100 mls/hr Lactated Ringer's (Ringers, Lactated) 1,000 mls @ 500 mls/hr IV ASDIRECTED [facility] Last Admin: 05/12/18 18:02 Dose: 500 mls/hr Piperacillin Sod/Tazobactam (Sod 3.375 gm/ Sodium Chloride) 50 mls @ 100 mls/ hr IV Q6H [facility] Stop: 05/18/18 12:29 Last Admin: 05/13/18 05:33 Dose: 100 mls/hr Lactated Ringer's (Ringers, Lactated) 1,000 mls @ 150 mls/hr IV ASDIRECTED [facility] Last Admin: 05/13/18 11:44 Dose: 150 mls/hr Lidocaine/Epinephrine (Xylocaine 1% With Epinephrine 1:100,000) Confirm Administered Dose 50 ml .ROUTE .STK-MED ONE Stop: 05/12/18 15:05 Last Admin: 05/12/18 16:23 Dose: 5 ml Midazolam HCl (Versed 1 Mg/Ml) Confirm Administered Dose 2 mg .ROUTE .STK-MED ONE Stop: 05/12/18 15:32 Midazolam HCl (Versed 1 Mg/Ml) Confirm Administered Dose 2 mg .ROUTE .STK-MED ONE Stop: 05/12/18 16:00 Potassium Chloride (Klor-Con M20) 20 meq PO ONETIME ONE Stop: 05/12/18 18:39 Last Admin: 05/12/18 20:28 Dose: 20 meq Propofol (Diprivan 20 Ml) Confirm Administered Dose 200 mg .ROUTE .STK-MED ONE Stop: 05/12/18 15:32 Propofol (Diprivan 20 Ml) Confirm Administered Dose 200 mg .ROUTE .STK-MED ONE Stop: 05/12/18 16:01 Propofol (Diprivan 20 Ml) Confirm Administered Dose 200 mg .ROUTE .STK-MED ONE Stop: 05/12/18 16:10 - Exam General: Alert, Oriented, Cooperative, Mild Distress Lungs: Clear to Auscultation, Normal Respiratory Effort Cardiovascular: Regular Rate, Regular Rhythm, No Murmurs GI/Abdominal Exam: Soft, No Organomegaly, Tender. No: Distended, Guarding, Rigid, Rebound Extremities: Non-Tender, No Pedal Edema Skin: Other (Surgical dressing covering the area of IND and cellulitis, evaluation per Dr. Gallardo) Consult PN Assessment/Plan Procedures: Procedures CHEST X-RAY 2VW FRONTAL&LATL (01/21/15) EMERGENCY DEPT VISIT (10/21/15) EMERGENCY DEPT VISIT (01/21/15) EMERGENCY DEPT VISIT (02/02/13) EMERGENCY DEPT VISIT (01/09/13) THER/PROPH/DIAG INJ SC/IM (10/21/15) X-RAY EXAM KNEE 4 OR MORE (08/12/14) X-RAY EXAM OF KNEE 3 (10/21/15) Problem List Initiated/Reviewed/Updated: Yes My Orders Last 24 Hours: My Active Orders 05/13/18 12:00 Lactated Ringers [Ringers, Lactated] 1,000 ml IV ASDIRECTED Lactobacillus Rhamnosus GG [Culturelle] 1 cap PO BID 05/14/18 05:00 BASIC METABOLIC PANEL,BMP [CHEM] Timed CBC WITH AUTO DIFF [HEME] Timed MAGNESIUM [CHEM] Timed Plan: ASSESSMENT AND RECOMMENDATIONS ABSCESS AND ASSOCIATED CELLULITIS WITH SEPSIS-stable and improved since admission, with normalization of lactic acid level and improvement in white blood cell count. -Continue IV Zyvox and Zosyn pending culture results -Decrease IV rate to 75 mL per hour -medicate for pain. Hydrocodone po evry 4 hours prn -IV Dilaudid 1mg IV every 3 hrs prn for pain not controlled by Hydrocodone -advised to use IS -treat fever with Tylenol -monitor vital signs closely -Blood cultures x2 and wound cultures pending Hypokalemia- resolved Tobacco use -declines patch
[2018-05-13] MEDS ORDERED: Lactated Ringers 1,000 ML IV SCH (12:00)
[2018-05-13] MEDS: Lactobacillus Rhamnosus GG (Probiotic) Cap PO SCH ×2 (12:38→20:35)
[2018-05-13] MEDS: LORazepam 0.5 MG Tab PO PRN (19:48)
[2018-05-13] MEDS: Acetaminophen/oxyCODONE 325-5 MG Tab PO PRN (20:35)
[2018-05-14] MEDS: Piperacillin/Tazobactam/Dext 3.375 GM in Premix Bag 1 BAG IV SCH ×5 (00:06→23:07)
[2018-05-14] MEDS: LORazepam 0.5 MG Tab PO PRN ×4 (00:17→21:37)
[2018-05-14] MEDS: Acetaminophen/oxyCODONE 325-5 MG Tab PO PRN ×4 (00:28→20:19)
[2018-05-14] MEDS: Linezolid 600 MG in Premix Bag 1 BAG IV SCH ×2 (06:29→17:46)
[2018-05-14] MEDS: HYDROmorphone 1 MG/ML Syringe IVPUSH PRN ×2 (07:35→19:24)
[2018-05-14] MEDS: Docusate Sodium 100 MG Cap PO PRN (07:35)
[2018-05-14] MEDS: Lactobacillus Rhamnosus GG (Probiotic) Cap PO SCH ×2 (09:18→20:39)
--- NOTE | 2018-05-14 12:58 | PCM.CONSN ---
- General Info Date of Service: 05/14/18 Subjective Update: Russ has been fairly stable since yesterday, area of cellulitis not significantly improved and was noted to be increased yesterday compared to admission. It has been fairly stable since then and does appear to be fading in color. Vital signs have been stable and he has remained afebrile. White blood cell count remains elevated but further improved over the last 24 hours. Functional Status: Reports: Tolerating Diet, Ambulating, Urinating - Review of Systems General: Reports: Weakness. Denies: Fever, Chills Pulmonary: Reports: No Symptoms Cardiovascular: Reports: No Symptoms Gastrointestinal: Reports: Abdominal Pain (Abdominal wall). Denies: Difficulty Swallowing, Nausea, Vomiting Skin: Reports: Other (Cellulitis across the lower abdomen, open wound which is packed) - Patient Data Vitals - Most Recent: Last Vital Signs Temp 98.2 F 05/14/18 11:05 Pulse 73 05/14/18 11:05 Resp 16 05/14/18 11:05 BP 128/70 05/14/18 11:05 Pulse Ox 98 05/14/18 11:05 Weight - Most Recent: 140 lb 0.002 oz I&O - Last 24 Hours: Intake & Output 05/13/18 05/14/18 05/14/18 22:59 06:59 14:59 Intake Total 001 240 9858 Balance 851 494 [id number] Lab Results Last 24 Hours: Laboratory Results - last 24 hr 05/14/18 05/14/18 Range/Units 05:00 05:00 WBC 21.5 H (4.5-11.0) K/uL RBC 4.41 (4.30-5.90) M/uL Hgb 12.8 (12.0-15.0) g/dL Hct 40.1 (40.0-54.0) % MCV 91 (80-98) fL MCH 29 (27-31) pg MCHC 32 (32-36) % Plt Count 276 (150-400) K/uL Neut % (Auto) 81 H (36-66) % Lymph % (Auto) 9 L (24-44) % Wilcox % (Auto) 9 H (2-6) % Eos % (Auto) 1 L (2-4) % Baso % (Auto) 0 (0-1) % Sodium 137 L (140-148) mmol/L Potassium 3.8 (3.6-5.2) mmol/L Chloride 102 (100-108) mmol/L Carbon Dioxide 28 (21-32) mmol/L Anion Gap 10.8 (5.0-14.0) mmol/L BUN 7 (7-18) mg/dL Creatinine 1.1 (0.8-1.3) mg/dL Est Cr Clr Drug Dosing 89.80 mL/min Estimated GFR (MDRD) > 60 (>60) Glucose 102 (74-106) mg/dL Calcium 8.8 (8.5-10.1) mg/dL Magnesium 1.8 (1.8-2.4) mg/dL Gregg Results Last 24 Hours: Microbiology 05/12/18 16:40 Gram Stain - Final Groin, Unspecified Wound Culture - Preliminary Anaerobic Culture - Preliminary NO GROWTH AFTER 1 DAY 05/12/18 15:37 Aerobic Blood Culture - Preliminary Blood - Venous - Lab Draw NO GROWTH AFTER 1 DAY Anaerobic Blood Culture - Preliminary NO GROWTH AFTER 1 DAY 05/12/18 15:37 Aerobic Blood Culture - Preliminary Blood - Venous NO GROWTH AFTER 1 DAY Anaerobic Blood Culture - Preliminary NO GROWTH AFTER 1 DAY Med Orders - Current: Current Medications Docusate Sodium (Colace) 100 mg PO BID PRN PRN Reason: Constipation Last Admin: 05/14/18 07:35 Dose: 100 mg Hydromorphone HCl (Dilaudid) 1 mg IVPUSH Q3H PRN PRN Reason: Abdominal Pain Last Admin: 05/14/18 07:35 Dose: 1 mg Linezolid 600 mg/ Premix 300 mls @ 300 mls/hr IV Q12H [facility] Stop: 05/18/18 06:59 Last Admin: 05/14/18 06:29 Dose: 300 mls/hr Piperacillin/Tazobactam/ (Dextrose 3.375 gm/ Premix) 50 mls @ 100 mls/hr IV Q6H [facility] Stop: 05/18/18 12:29 Last Admin: 05/14/18 05:48 Dose: 100 mls/hr Lactobacillus Rhamnosus (Culturelle) 1 cap PO BID [place] Last Admin: 05/14/18 09:18 Dose: 1 cap Lorazepam (Ativan) 0.5 mg PO Q4H PRN PRN Reason: Anxiety Last Admin: 05/14/18 05:54 Dose: 0.5 mg Ondansetron HCl (Zofran) 4 mg IVPUSH Q6H PRN PRN Reason: Nausea/Vomiting Oxycodone/Acetaminophen (Percocet 325-5 Mg) 1 - 2 tab PO Q4H PRN PRN Reason: Pain Last Admin: 05/14/18 11:09 Dose: 1 tab Discontinued Medications Hydrocodone Bitart/Acetaminophen ([place] 325-5 Mg) 2 tab PO Q4H PRN PRN Reason: Pain (moderate 4-6) Last Admin: 05/13/18 15:54 Dose: 2 tab Bupivacaine HCl (Marcaine 0.5%) Confirm Administered Dose 50 ml .ROUTE .STK-MED ONE Stop: 05/12/18 15:05 Last Admin: 05/12/18 16:23 Dose: 5 ml Fentanyl (Sublimaze) Confirm Administered Dose 100 mcg .ROUTE .STK-MED ONE Stop: 05/12/18 15:32 Lactated Ringer's (Ringers, Lactated) 1,000 mls @ 150 mls/hr IV ASDIRECTED [facility] Last Admin: 05/12/18 15:46 Dose: 500 mls/hr Clindamycin Phosphate 900 mg/ (Sodium Chloride) 106 mls @ 200 mls/hr IV ONETIME ONE Stop: 05/12/18 16:31 Last Admin: 05/12/18 15:46 Dose: 200 mls/hr Levofloxacin/Dextrose 500 mg/ (Premix) 100 mls @ 100 mls/hr IV ONETIME ONE Stop: 05/12/18 16:59 Last Admin: 05/12/18 15:46 Dose: 100 mls/hr Lactated Ringer's (Ringers, Lactated) 1,000 mls @ 500 mls/hr IV ASDIRECTED [facility] Last Admin: 05/12/18 18:02 Dose: 500 mls/hr Piperacillin Sod/Tazobactam (Sod 3.375 gm/ Sodium Chloride) 50 mls @ 100 mls/ hr IV Q6H [facility] Stop: 05/18/18 12:29 Last Admin: 05/13/18 05:33 Dose: 100 mls/hr Lactated Ringer's (Ringers, Lactated) 1,000 mls @ 150 mls/hr IV ASDIRECTED [facility] Last Infusion: 05/13/18 12:37 Dose: 75 mls/hr Lactated Ringer's (Ringers, Lactated) 1,000 mls @ 75 mls/hr IV ASDIRECTED [facility] Last Admin: 05/14/18 03:01 Dose: 75 mls/hr Lidocaine/Epinephrine (Xylocaine 1% With Epinephrine 1:100,000) Confirm Administered Dose 50 ml .ROUTE .STK-MED ONE Stop: 05/12/18 15:05 Last Admin: 05/12/18 16:23 Dose: 5 ml Midazolam HCl (Versed 1 Mg/Ml) Confirm Administered Dose 2 mg .ROUTE .STK-MED ONE Stop: 05/12/18 15:32 Midazolam HCl (Versed 1 Mg/Ml) Confirm Administered Dose 2 mg .ROUTE .STK-MED ONE Stop: 05/12/18 16:00 Oxycodone/Acetaminophen (Percocet 325-5 Mg) 1 - 2 tab PO Q4H PRN PRN Reason: Pain Last Admin: 05/14/18 05:54 Dose: 1 tab Potassium Chloride (Klor-Con M20) 20 meq PO ONETIME ONE Stop: 05/12/18 18:39 Last Admin: 05/12/18 20:28 Dose: 20 meq Propofol (Diprivan 20 Ml) Confirm Administered Dose 200 mg .ROUTE .STK-MED ONE Stop: 05/12/18 15:32 Propofol (Diprivan 20 Ml) Confirm Administered Dose 200 mg .ROUTE .STK-MED ONE Stop: 05/12/18 16:01 Propofol (Diprivan 20 Ml) Confirm Administered Dose 200 mg .ROUTE .STK-MED ONE Stop: 05/12/18 16:10 - Exam General: Alert, Oriented, Cooperative, Mild Distress Lungs: Clear to Auscultation, Normal Respiratory Effort Cardiovascular: Regular Rate, Regular Rhythm, No Murmurs GI/Abdominal Exam: Soft, No Organomegaly, Tender. No: Distended, Guarding, Rigid, Rebound Extremities: Non-Tender, No Pedal Edema Consult PN Assessment/Plan Procedures: Procedures CHEST X-RAY 2VW FRONTAL&LATL (01/21/15) EMERGENCY DEPT VISIT (10/21/15) EMERGENCY DEPT VISIT (01/21/15) EMERGENCY DEPT VISIT (02/02/13) EMERGENCY DEPT VISIT (01/09/13) THER/PROPH/DIAG INJ SC/IM (10/21/15) X-RAY EXAM KNEE 4 OR MORE (08/12/14) X-RAY EXAM OF KNEE 3 (10/21/15) Problem List Initiated/Reviewed/Updated: Yes My Orders Last 24 Hours: My Active Orders 05/13/18 12:00 Lactobacillus Rhamnosus GG [Culturelle] 1 cap PO BID 05/13/18 16:05 LORazepam [Ativan] 0.5 mg PO Q4H PRN 05/14/18 12:53 Convert IV to Saline Lock [OM.PC] Routine Plan: ASSESSMENT AND RECOMMENDATIONS ABSCESS AND ASSOCIATED CELLULITIS WITH SEPSIS-the of cellulitis has not significantly improved over the last 24 hours but does not appear to be enlarging. Other signs are all stable and improved, vital signs are good and he has remained afebrile. White blood cell count remains elevated but improved from yesterday. -Continue IV Zyvox and Zosyn pending culture results -Saline lock IV -medicate for pain. Hydrocodone po evry 4 hours prn -IV Dilaudid 1mg IV every 3 hrs prn for pain not controlled by Hydrocodone -advised to use IS -treat fever with Tylenol -monitor vital signs closely -Blood cultures x2 and wound cultures pending Hypokalemia- resolved Tobacco use -declines patch
[2018-05-15] MEDS: Acetaminophen/oxyCODONE 325-5 MG Tab PO PRN ×5 (00:03→20:33)
[2018-05-15] MEDS: Piperacillin/Tazobactam/Dext 3.375 GM in Premix Bag 1 BAG IV SCH (05:17)
[2018-05-15] MEDS: Linezolid 600 MG in Premix Bag 1 BAG IV SCH ×2 (05:57→18:09)
[2018-05-15] MEDS: LORazepam 0.5 MG Tab PO PRN ×3 (07:51→20:33)
[2018-05-15] MEDS: Lactobacillus Rhamnosus GG (Probiotic) Cap PO SCH ×2 (08:16→20:05)
[2018-05-15] MEDS: HYDROmorphone 1 MG/ML Syringe IVPUSH PRN ×2 (09:01→18:11)
[2018-05-15] MEDS: Docusate Sodium 100 MG Cap PO PRN (09:01)
[2018-05-15] MEDS ORDERED: Nicotine 10 MG/Cartridge Inhaler 168 Cartridges/Box INH PRN (09:20)
--- NOTE | 2018-05-15 09:38 | PCM.SURGPN ---
- General Info Date of Service: 05/15/18 Date of Surgery/Procedure: 05/12/18 POD#: 3 Functional Status: Reports: Pain Controlled, Tolerating Diet, Ambulating, Urinating, Other (stove tender suprapubic area with some induration--?more abscess?) - Review of Systems General: Reports: Other (Suprapubic pain) HEENT: Reports: No Symptoms Skin: Reports: No Symptoms, Other (Suprapubic tenderness) Neurological: Reports: No Symptoms Psychiatric: Reports: Anxiety (Meds are helping) - Patient Data Vitals - Most Recent: Last Vital Signs Temp 98.3 F 05/15/18 07:42 Pulse 60 05/15/18 07:42 Resp 16 05/15/18 07:42 BP 112/61 05/15/18 07:42 Pulse Ox 94 L 05/15/18 07:42 Weight - Most Recent: 140 lb 0.002 oz I&O - Last 24 Hours: Intake & Output 05/14/18 05/15/18 05/15/18 22:59 06:59 14:59 Intake Total 300 50 Balance 300 50 Lab Results Last 24 Hrs: Laboratory Results - last 24 hr 05/15/18 05/15/18 Range/Units 05:11 05:11 WBC 18.8 H (4.5-11.0) K/uL RBC 4.75 (4.30-5.90) M/uL Hgb 13.6 (12.0-15.0) g/dL Hct 42.8 (40.0-54.0) % MCV 90 (80-98) fL MCH 29 (27-31) pg MCHC 32 (32-36) % Plt Count 348 (150-400) K/uL Sodium 137 L (140-148) mmol/L Potassium 3.7 (3.6-5.2) mmol/L Chloride 101 (100-108) mmol/L Carbon Dioxide 27 (21-32) mmol/L Anion Gap 12.7 (5.0-14.0) mmol/L BUN 10 (7-18) mg/dL Creatinine 1.0 (0.8-1.3) mg/dL Est Cr Clr Drug Dosing 98.78 mL/min Estimated GFR (MDRD) > 60 (>60) Glucose 106 (74-106) mg/dL Calcium 9.2 (8.5-10.1) mg/dL Gregg Results Last 24 Hrs: Microbiology 05/12/18 16:40 Gram Stain - Final Groin, Unspecified Wound Culture - Final (Mrsa) Staphylococcus Aureus Anaerobic Culture - Preliminary NO GROWTH AFTER 2 DAYS 05/12/18 15:37 Aerobic Blood Culture - Preliminary Blood - Venous - Lab Draw NO GROWTH AFTER 2 DAYS Anaerobic Blood Culture - Preliminary NO GROWTH AFTER 2 DAYS 05/12/18 15:37 Aerobic Blood Culture - Preliminary Blood - Venous NO GROWTH AFTER 2 DAYS Anaerobic Blood Culture - Preliminary NO GROWTH AFTER 2 DAYS Med Orders - Current: Current Medications Docusate Sodium (Colace) 100 mg PO BID PRN PRN Reason: Constipation Last Admin: 05/15/18 09:01 Dose: 100 mg Hydromorphone HCl (Dilaudid) 1 mg IVPUSH Q3H PRN PRN Reason: Abdominal Pain Last Admin: 05/15/18 09:01 Dose: 1 mg Linezolid 600 mg/ Premix 300 mls @ 300 mls/hr IV Q12H [facility]END[facility] TO [facility] Stop: 05/18/18 06:59 Last Admin: 05/15/18 05:57 Dose: 300 mls/hr Piperacillin/Tazobactam/ (Dextrose 3.375 gm/ Premix) 50 mls @ 100 mls/hr IV Q6H [facility] Stop: 05/18/18 12:29 Last Admin: 05/15/18 05:17 Dose: 100 mls/hr Lactobacillus Rhamnosus (Culturelle) 1 cap PO BID [place] Last Admin: 05/15/18 08:16 Dose: 1 cap Lorazepam (Ativan) 0.5 mg PO Q4H PRN PRN Reason: Anxiety Last Admin: 05/15/18 07:51 Dose: 0.5 mg Nicotine (Nicotrol) 10 mg INH Q1H PRN PRN Reason: Other Ondansetron HCl (Zofran) 4 mg IVPUSH Q6H PRN PRN Reason: Nausea/Vomiting Oxycodone/Acetaminophen (Percocet 325-5 Mg) 1 - 2 tab PO Q4H PRN PRN Reason: Pain Last Admin: 05/15/18 05:22 Dose: 1 tab Discontinued Medications Hydrocodone Bitart/Acetaminophen ([place] 325-5 Mg) 2 tab PO Q4H PRN PRN Reason: Pain (moderate 4-6) Last Admin: 05/13/18 15:54 Dose: 2 tab Bupivacaine HCl (Marcaine 0.5%) Confirm Administered Dose 50 ml .ROUTE .STK-MED ONE Stop: 05/12/18 15:05 Last Admin: 05/12/18 16:23 Dose: 5 ml Fentanyl (Sublimaze) Confirm Administered Dose 100 mcg .ROUTE .STK-MED ONE Stop: 05/12/18 15:32 Lactated Ringer's (Ringers, Lactated) 1,000 mls @ 150 mls/hr IV ASDIRECTED [facility]END[facility] TO [facility] Last Admin: 05/12/18 15:46 Dose: 500 mls/hr Clindamycin Phosphate 900 mg/ (Sodium Chloride) 106 mls @ 200 mls/hr IV ONETIME ONE Stop: 05/12/18 16:31 Last Admin: 05/12/18 15:46 Dose: 200 mls/hr Levofloxacin/Dextrose 500 mg/ (Premix) 100 mls @ 100 mls/hr IV ONETIME ONE Stop: 05/12/18 16:59 Last Admin: 05/12/18 15:46 Dose: 100 mls/hr Lactated Ringer's (Ringers, Lactated) 1,000 mls @ 500 mls/hr IV ASDIRECTED PENDING [facility]ALE TO [facility] Last Admin: 05/12/18 18:02 Dose: 500 mls/hr Piperacillin Sod/Tazobactam (Sod 3.375 gm/ Sodium Chloride) 50 mls @ 100 mls/ hr IV Q6H [facility] Stop: 05/18/18 12:29 Last Admin: 05/13/18 05:33 Dose: 100 mls/hr Lactated Ringer's (Ringers, Lactated) 1,000 mls @ 150 mls/hr IV ASDIRECTED PENDING [facility]ALE TO [facility] Last Infusion: 05/13/18 12:37 Dose: 75 mls/hr Lactated Ringer's (Ringers, Lactated) 1,000 mls @ 75 mls/hr IV ASDIRECTED PENDING [facility]ALE TO [facility] Last Admin: 05/14/18 03:01 Dose: 75 mls/hr Lidocaine/Epinephrine (Xylocaine 1% With Epinephrine 1:100,000) Confirm Administered Dose 50 ml .ROUTE .STK-MED ONE Stop: 05/12/18 15:05 Last Admin: 05/12/18 16:23 Dose: 5 ml Midazolam HCl (Versed 1 Mg/Ml) Confirm Administered Dose 2 mg .ROUTE .STK-MED ONE Stop: 05/12/18 15:32 Midazolam HCl (Versed 1 Mg/Ml) Confirm Administered Dose 2 mg .ROUTE .STK-MED ONE Stop: 05/12/18 16:00 Oxycodone/Acetaminophen (Percocet 325-5 Mg) 1 - 2 tab PO Q4H PRN PRN Reason: Pain Last Admin: 05/14/18 05:54 Dose: 1 tab Potassium Chloride (Klor-Con M20) 20 meq PO ONETIME ONE Stop: 05/12/18 18:39 Last Admin: 05/12/18 20:28 Dose: 20 meq Propofol (Diprivan 20 Ml) Confirm Administered Dose 200 mg .ROUTE .STK-MED ONE Stop: 05/12/18 15:32 Propofol (Diprivan 20 Ml) Confirm Administered Dose 200 mg .ROUTE .STK-MED ONE Stop: 05/12/18 16:01 Propofol (Diprivan 20 Ml) Confirm Administered Dose 200 mg .ROUTE .STK-MED ONE Stop: 05/12/18 16:10 - Exam Wound/Incisions: Other (Incision open. Some surround induration. ) GI/Abdominal Exam: Other (Suprapubic incision open. Some surrounding induration. ) Skin: Warm, Dry, Other (Erythema looks a little less intense. Cultures grew MRSA. ) Neurological: No New Focal Deficit Psy/Mental Status: Alert, Normal Affect, Normal Mood - Problem List & Annotations (1) Abscess SNOMED Code(s): 442931794 Code(s): L02.91 - CUTANEOUS ABSCESS, UNSPECIFIED Status: Acute Current Visit: Yes (2) Cellulitis of abdominal wall SNOMED Code(s): 50649132 Code(s): L03.311 - CELLULITIS OF ABDOMINAL WALL Status: Acute Current Visit: Yes - Problem List Review Problem List Initiated/Reviewed/Updated: Yes - My Orders Last 24 Hours: Active Orders 24 hr Category Date Time Status NPO Now [Nothing per Oral Now Diet] [DIET] Diet 05/15/18 Breakfast Active Abdomen Ltd [US] Routine Exams 05/15/18 09:18 Ordered BASIC METABOLIC PANEL,BMP [CHEM] DAILY Lab 05/16/18 05:11 Ordered BASIC METABOLIC PANEL,BMP [CHEM] DAILY Lab 05/17/18 05:11 Ordered BASIC METABOLIC PANEL,BMP [CHEM] DAILY Lab 05/18/18 05:11 Ordered CBC W/O DIFF,HEMOGRAM [HEME] DAILY Lab 05/16/18 05:11 Ordered CBC W/O DIFF,HEMOGRAM [HEME] DAILY Lab 05/17/18 05:11 Ordered CBC W/O DIFF,HEMOGRAM [HEME] DAILY Lab 05/18/18 05:11 Ordered Nicotine [Nicotrol] Med 05/15/18 09:20 Ordered 10 mg INH Q1H PRN Convert IV to Saline Lock [OM.PC] Routine Oth 05/14/18 12:53 Ordered Medication Orders Docusate Sodium (Colace) 100 mg PO BID PRN PRN Reason: Constipation Last Admin: 05/15/18 09:01 Dose: 100 mg Admin: 05/14/18 07:35 Dose: 100 mg Admin: 05/13/18 11:12 Dose: 100 mg Hydromorphone HCl (Dilaudid) 1 mg IVPUSH Q3H PRN PRN Reason: Abdominal Pain Last Admin: 05/15/18 09:01 Dose: 1 mg Admin: 05/14/18 19:24 Dose: 1 mg Admin: 05/14/18 07:35 Dose: 1 mg Admin: 05/13/18 19:49 Dose: 1 mg Admin: 05/13/18 15:46 Dose: 1 mg Admin: 05/13/18 05:30 Dose: 1 mg Admin: 05/12/18 21:39 Dose: 1 mg Linezolid 600 mg/ Premix 300 mls @ 300 mls/hr IV Q12H [place] Stop: 05/18/18 06:59 Last Admin: 05/15/18 05:57 Dose: 300 mls/hr Infusion: 05/14/18 18:46 Dose: 300 mls/hr Admin: 05/14/18 17:46 Dose: 300 mls/hr Infusion: 05/14/18 07:29 Dose: 300 mls/hr Admin: 05/14/18 06:29 Dose: 300 mls/hr Infusion: 05/13/18 18:07 Dose: 300 mls/hr Admin: 05/13/18 17:07 Dose: 300 mls/hr Infusion: 05/13/18 07:21 Dose: 300 mls/hr Admin: 05/13/18 06:21 Dose: 300 mls/hr Infusion: 05/12/18 20:36 Dose: 300 mls/hr Admin: 05/12/18 19:36 Dose: 300 mls/hr Piperacillin/Tazobactam/ (Dextrose 3.375 gm/ Premix) 50 mls @ 100 mls/hr IV Q6H [place] Stop: 05/18/18 12:29 Last Admin: 05/15/18 05:17 Dose: 100 mls/hr Admin: 05/14/18 23:07 Dose: 100 mls/hr Admin: 05/14/18 17:10 Dose: 100 mls/hr Admin: 05/14/18 13:23 Dose: 100 mls/hr Admin: 05/14/18 05:48 Dose: 100 mls/hr Admin: 05/14/18 00:06 Dose: 100 mls/hr Admin: 05/13/18 18:08 Dose: 100 mls/hr Admin: 05/13/18 11:38 Dose: 100 mls/hr Lactobacillus Rhamnosus (Culturelle) 1 cap PO BID [place] Last Admin: 05/15/18 08:16 Dose: 1 cap Admin: 05/14/18 20:39 Dose: 1 cap Admin: 05/14/18 09:18 Dose: 1 cap Admin: 05/13/18 20:35 Dose: 1 cap Admin: 05/13/18 12:38 Dose: 1 cap Lorazepam (Ativan) 0.5 mg PO Q4H PRN PRN Reason: Anxiety Last Admin: 05/15/18 07:51 Dose: 0.5 mg Admin: 05/14/18 21:37 Dose: 0.5 mg Admin: 05/14/18 13:18 Dose: 0.5 mg Admin: 05/14/18 05:54 Dose: 0.5 mg Admin: 05/14/18 00:17 Dose: 0.5 mg Admin: 05/13/18 19:48 Dose: 0.5 mg Nicotine (Nicotrol) 10 mg INH Q1H PRN PRN Reason: Other Ondansetron HCl (Zofran) 4 mg IVPUSH Q6H PRN PRN Reason: Nausea/Vomiting Oxycodone/Acetaminophen (Percocet 325-5 Mg) 1 - 2 tab PO Q4H PRN PRN Reason: Pain Last Admin: 05/15/18 05:22 Dose: 1 tab Admin: 05/15/18 00:03 Dose: 1 tab Admin: 05/14/18 20:19 Dose: 2 tab Admin: 05/14/18 11:09 Dose: 1 tab - Assessment Assessment (Free Text/Narrative):: Afebrile. WBC down to 18,800. stove tender in supra pubic area with induration. Cultures grew MRSA. - Plan Plan (Free Text/Narrative):: Continue antibiotics. Ultrasound to see if there is an abscess.
--- NOTE | 2018-05-15 10:16 | PCM.CONSN ---
- General Info Date of Service: 05/15/18 Subjective Update: Russ has been stable since yesterday, vital signs have been good and he has remained afebrile. There's been further modest decrease in white blood cell count. He does note firm areas just below the incision and in the right groin. Cultures have grown out MRSA, he remains on Zyvox. Functional Status: Reports: Pain Controlled, Tolerating Diet, Ambulating, Urinating - Review of Systems General: Denies: Fever, Chills Pulmonary: Reports: No Symptoms Cardiovascular: Reports: No Symptoms Gastrointestinal: Reports: No Symptoms Skin: Reports: Other (Erythema around the area of previous IND extending laterally on each side.) - Patient Data Vitals - Most Recent: Last Vital Signs Temp 98.3 F 05/15/18 07:42 Pulse 60 05/15/18 07:42 Resp 16 05/15/18 07:42 BP 112/61 05/15/18 07:42 Pulse Ox 94 L 05/15/18 07:42 Weight - Most Recent: 140 lb 0.002 oz I&O - Last 24 Hours: Intake & Output 05/14/18 05/15/18 05/15/18 22:59 06:59 14:59 Intake Total 300 50 Balance 300 50 Lab Results Last 24 Hours: Laboratory Results - last 24 hr 05/15/18 05/15/18 Range/Units 05:11 05:11 WBC 18.8 H (4.5-11.0) K/uL RBC 4.75 (4.30-5.90) M/uL Hgb 13.6 (12.0-15.0) g/dL Hct 42.8 (40.0-54.0) % MCV 90 (80-98) fL MCH 29 (27-31) pg MCHC 32 (32-36) % Plt Count 348 (150-400) K/uL Sodium 137 L (140-148) mmol/L Potassium 3.7 (3.6-5.2) mmol/L Chloride 101 (100-108) mmol/L Carbon Dioxide 27 (21-32) mmol/L Anion Gap 12.7 (5.0-14.0) mmol/L BUN 10 (7-18) mg/dL Creatinine 1.0 (0.8-1.3) mg/dL Est Cr Clr Drug Dosing 98.78 mL/min Estimated GFR (MDRD) > 60 (>60) Glucose 106 (74-106) mg/dL Calcium 9.2 (8.5-10.1) mg/dL [facility]gg Results Last 24 Hours: Microbiology 05/12/18 16:40 Gram Stain - Final Groin, Unspecified Wound Culture - Final (Mrsa) Staphylococcus Aureus Anaerobic Culture - Preliminary NO GROWTH AFTER 2 DAYS 05/12/18 15:37 Aerobic Blood Culture - Preliminary Blood - Venous - Lab Draw NO GROWTH AFTER 2 DAYS Anaerobic Blood Culture - Preliminary NO GROWTH AFTER 2 DAYS 05/12/18 15:37 Aerobic Blood Culture - Preliminary Blood - Venous NO GROWTH AFTER 2 DAYS Anaerobic Blood Culture - Preliminary NO GROWTH AFTER 2 DAYS Med Orders - Current: Current Medications Docusate Sodium (Colace) 100 mg PO BID PRN PRN Reason: Constipation Last Admin: 05/15/18 09:01 Dose: 100 mg Hydromorphone HCl (Dilaudid) 1 mg IVPUSH Q3H PRN PRN Reason: Abdominal Pain Last Admin: 05/15/18 09:01 Dose: 1 mg Linezolid 600 mg/ Premix 300 mls @ 300 mls/hr IV Q12H [facility] Stop: 05/18/18 06:59 Last Admin: 05/15/18 05:57 Dose: 300 mls/hr Piperacillin/Tazobactam/ (Dextrose 3.375 gm/ Premix) 50 mls @ 100 mls/hr IV Q6H [facility] Stop: 05/18/18 12:29 Last Admin: 05/15/18 05:17 Dose: 100 mls/hr Lactobacillus Rhamnosus (Culturelle) 1 cap PO BID [place] Last Admin: 05/15/18 08:16 Dose: 1 cap Lorazepam (Ativan) 0.5 mg PO Q4H PRN PRN Reason: Anxiety Last Admin: 05/15/18 07:51 Dose: 0.5 mg Nicotine (Nicotrol) 10 mg INH Q1H PRN PRN Reason: Other Last Admin: 05/15/18 10:09 Dose: 10 mg Ondansetron HCl (Zofran) 4 mg IVPUSH Q6H PRN PRN Reason: Nausea/Vomiting Oxycodone/Acetaminophen (Percocet 325-5 Mg) 1 - 2 tab PO Q4H PRN PRN Reason: Pain Last Admin: 05/15/18 05:22 Dose: 1 tab Discontinued Medications Hydrocodone Bitart/Acetaminophen ([place] 325-5 Mg) 2 tab PO Q4H PRN PRN Reason: Pain (moderate 4-6) Last Admin: 05/13/18 15:54 Dose: 2 tab Bupivacaine HCl (Marcaine 0.5%) Confirm Administered Dose 50 ml .ROUTE .STK-MED ONE Stop: 05/12/18 15:05 Last Admin: 05/12/18 16:23 Dose: 5 ml Fentanyl (Sublimaze) Confirm Administered Dose 100 mcg .ROUTE .STK-MED ONE Stop: 05/12/18 15:32 Lactated Ringer's (Ringers, Lactated) 1,000 mls @ 150 mls/hr IV ASDIRECTED [facility] Last Admin: 05/12/18 15:46 Dose: 500 mls/hr Clindamycin Phosphate 900 mg/ (Sodium Chloride) 106 mls @ 200 mls/hr IV ONETIME ONE Stop: 05/12/18 16:31 Last Admin: 05/12/18 15:46 Dose: 200 mls/hr Levofloxacin/Dextrose 500 mg/ (Premix) 100 mls @ 100 mls/hr IV ONETIME ONE Stop: 05/12/18 16:59 Last Admin: 05/12/18 15:46 Dose: 100 mls/hr Lactated Ringer's (Ringers, Lactated) 1,000 mls @ 500 mls/hr IV ASDIRECTED [facility] Last Admin: 05/12/18 18:02 Dose: 500 mls/hr Piperacillin Sod/Tazobactam (Sod 3.375 gm/ Sodium Chloride) 50 mls @ 100 mls/ hr IV Q6H [facility] Stop: 05/18/18 12:29 Last Admin: 05/13/18 05:33 Dose: 100 mls/hr Lactated Ringer's (Ringers, Lactated) 1,000 mls @ 150 mls/hr IV ASDIRECTED [facility] Last Infusion: 05/13/18 12:37 Dose: 75 mls/hr Lactated Ringer's (Ringers, Lactated) 1,000 mls @ 75 mls/hr IV ASDIRECTED [facility] Last Admin: 05/14/18 03:01 Dose: 75 mls/hr Lidocaine/Epinephrine (Xylocaine 1% With Epinephrine 1:100,000) Confirm Administered Dose 50 ml .ROUTE .STK-MED ONE Stop: 05/12/18 15:05 Last Admin: 05/12/18 16:23 Dose: 5 ml Midazolam HCl (Versed 1 Mg/Ml) Confirm Administered Dose 2 mg .ROUTE .STK-MED ONE Stop: 05/12/18 15:32 Midazolam HCl (Versed 1 Mg/Ml) Confirm Administered Dose 2 mg .ROUTE .STK-MED ONE Stop: 05/12/18 16:00 Oxycodone/Acetaminophen (Percocet 325-5 Mg) 1 - 2 tab PO Q4H PRN PRN Reason: Pain Last Admin: 05/14/18 05:54 Dose: 1 tab Potassium Chloride (Klor-Con M20) 20 meq PO ONETIME ONE Stop: 05/12/18 18:39 Last Admin: 05/12/18 20:28 Dose: 20 meq Propofol (Diprivan 20 Ml) Confirm Administered Dose 200 mg .ROUTE .STK-MED ONE Stop: 05/12/18 15:32 Propofol (Diprivan 20 Ml) Confirm Administered Dose 200 mg .ROUTE .STK-MED ONE Stop: 05/12/18 16:01 Propofol (Diprivan 20 Ml) Confirm Administered Dose 200 mg .ROUTE .STK-MED ONE Stop: 05/12/18 16:10 - Exam General: Alert, Oriented, Cooperative, Mild Distress Lungs: Clear to Auscultation, Normal Respiratory Effort Cardiovascular: Regular Rate, Regular Rhythm, No Murmurs GI/Abdominal Exam: Soft, Non-Tender, No Organomegaly, No Distention Skin: Other (Erythema extending laterally from IND incision, fullness to palpation suprapubic area and right groin. Overall area of cellulitis appears to be improved from yesterday with less erythema) Consult PN Assessment/Plan Procedures: Procedures CHEST X-RAY 2VW FRONTAL&LATL (01/21/15) EMERGENCY DEPT VISIT (10/21/15) EMERGENCY DEPT VISIT (01/21/15) EMERGENCY DEPT VISIT (02/02/13) EMERGENCY DEPT VISIT (01/09/13) THER/PROPH/DIAG INJ SC/IM (10/21/15) X-RAY EXAM KNEE 4 OR MORE (08/12/14) X-RAY EXAM OF KNEE 3 (10/21/15) Problem List Initiated/Reviewed/Updated: Yes My Orders Last 24 Hours: My Active Orders 05/14/18 12:53 Convert IV to Saline Lock [OM.PC] Routine 05/15/18 09:20 Nicotine [Nicotrol] 10 mg INH Q1H PRN 05/15/18 Breakfast NPO Now [Nothing per Oral Now Diet] [DIET] Plan: ASSESSMENT AND RECOMMENDATIONS ABSCESS AND ASSOCIATED CELLULITIS WITH SEPSIS-improvement in erythema over the last 24 hours, fullness to palpation suprapubic area just below previous IND incision as well as in the right groin -Continue IV Zyvox -Discontinue IV Zosyn -Ultrasound to evaluate for further areas of abscess that may require IND -Saline lock IV -medicate for pain. Hydrocodone po evry 4 hours prn -IV Dilaudid 1mg IV every 3 hrs prn for pain not controlled by Hydrocodone -advised to use IS -treat fever with Tylenol -monitor vital signs closely -Blood cultures x2 and wound cultures pending Hypokalemia- resolved Tobacco use -Nicotine inhaler
--- NOTE | 2018-05-15 13:10 | CRLUS ---
Indication: Suprapubic abscess. Had abscess drained. Has other indurated suprapubic areas. Check for abscesses. Technique: An ultrasound of the right lower abdomen/groin was performed Comparison: None Findings: In the right lower abdomen/groin, a complex fluid collection with surrounding edema is identified. This measures approximately 4.3 x 1.3 x 0.4 centimeters in size. An "X" was placed over the fluid collection. Dr. Ivan foster was present for the exam. Impression: Complicated fluid collection identified in the right lower abdomen/groin. Dictated by Shannan Wells MD @ May 15 2018 1:05PM Signed by Dr. Shannan Wells @ May 15 2018 1:09PM
[2018-05-15] MEDS ORDERED: Midazolam 1 MG/ML 2 ML SDV ONE (14:08)
[2018-05-15] MEDS ORDERED: Propofol 200 MG/20 ML SDV ONE ×2 (14:08→14:17)
[2018-05-15] MEDS ORDERED: fentaNYL 100 MCG/2 ML SDV ONE ×2 (14:08→14:20)
[2018-05-15] MEDS ORDERED: Bupivacaine 0.5% 50 ML MDV ONE (14:25)
[2018-05-15] MEDS ORDERED: Lidocaine 1% with EPINEPHrine 1:100,000 50 ML MDV ONE (14:25)
[2018-05-15] MEDS ORDERED: Bupivacaine 0.5% 50 ML MDV INJECT ONE (14:30)
[2018-05-15] MEDS ORDERED: Diphtheria,Pertussis(Acell),Tetanus Vaccine 0.5 ML SDV IM ONE (15:30)
[2018-05-16] MEDS: LORazepam 0.5 MG Tab PO PRN ×3 (00:20→19:30)
[2018-05-16] MEDS: Acetaminophen/oxyCODONE 325-5 MG Tab PO PRN ×6 (00:20→23:21)
[2018-05-16] MEDS: Linezolid 600 MG in Premix Bag 1 BAG IV SCH ×2 (05:43→17:59)
[2018-05-16] MEDS: HYDROmorphone 1 MG/ML Syringe IVPUSH PRN ×2 (08:23→21:20)
--- NOTE | 2018-05-16 08:58 | PCM.SURGPN ---
- General Info Date of Service: 05/12/18 Date of Surgery/Procedure: 05/16/18 POD#: 4 Post-Op Diagnosis: Suprapubic abscess Functional Status: Reports: Pain Controlled, Tolerating Diet, Ambulating, Urinating, Other (Says his pain is less, improving. ) - Review of Systems General: Reports: No Symptoms HEENT: Reports: No Symptoms Pulmonary: Reports: No Symptoms Cardiovascular: Reports: No Symptoms Gastrointestinal: Reports: No Symptoms Genitourinary: Reports: No Symptoms Musculoskeletal: Reports: No Symptoms Skin: Reports: Other (Pain is improving) Neurological: Reports: No Symptoms Psychiatric: Reports: Anxiety - Patient Data Vitals - Most Recent: Last Vital Signs Temp 99.3 F 05/16/18 07:00 Pulse 66 05/16/18 07:00 Resp 16 05/16/18 07:00 BP 107/54 L 05/16/18 07:00 Pulse Ox 96 05/16/18 07:00 Weight - Most Recent: 140 lb 0.002 oz I&O - Last 24 Hours: Intake & Output 05/15/18 05/16/18 05/16/18 22:59 06:59 14:59 Intake Total 300 Balance 300 Lab Results Last 24 Hrs: Laboratory Results - last 24 hr 05/16/18 05/16/18 Range/Units 05:11 05:11 WBC 16.5 H (4.5-11.0) K/uL RBC 4.91 (4.30-5.90) M/uL Hgb 14.0 (12.0-15.0) g/dL Hct 41.7 (40.0-54.0) % MCV 85 (80-98) fL MCH 29 (27-31) pg MCHC 34 (32-36) % Plt Count 378 (150-400) K/uL Sodium 136 L (140-148) mmol/L Potassium 4.3 (3.6-5.2) mmol/L Chloride 101 (100-108) mmol/L Carbon Dioxide 25 (21-32) mmol/L Anion Gap 14.3 H (5.0-14.0) mmol/L BUN 13 (7-18) mg/dL Creatinine 1.2 (0.8-1.3) mg/dL Est Cr Clr Drug Dosing 82.32 mL/min Estimated GFR (MDRD) > 60 (>60) Glucose 86 (74-106) mg/dL Calcium 9.2 (8.5-10.1) mg/dL [facility]gg Results Last 24 Hrs: Microbiology 05/15/18 14:54 Gram Stain - Final Groin, Unspecified Wound Culture - Preliminary Anaerobic Culture - Preliminary NO GROWTH AFTER 1 DAY 05/12/18 16:40 Gram Stain - Final Groin, Unspecified Wound Culture - Final (Mrsa) Staphylococcus Aureus Anaerobic Culture - Final NO GROWTH AFTER 3 DAYS 05/12/18 15:37 Aerobic Blood Culture - Preliminary Blood - Venous - Lab Draw NO GROWTH AFTER 3 DAYS Anaerobic Blood Culture - Preliminary NO GROWTH AFTER 3 DAYS 05/12/18 15:37 Aerobic Blood Culture - Preliminary Blood - Venous NO GROWTH AFTER 3 DAYS Anaerobic Blood Culture - Preliminary NO GROWTH AFTER 3 DAYS Med Orders - Current: Current Medications Docusate Sodium (Colace) 100 mg PO BID PRN PRN Reason: Constipation Last Admin: 05/15/18 09:01 Dose: 100 mg Hydromorphone HCl (Dilaudid) 1 mg IVPUSH Q3H PRN PRN Reason: Abdominal Pain Last Admin: 05/16/18 08:23 Dose: 1 mg Linezolid 600 mg/ Premix 300 mls @ 300 mls/hr IV Q12H [facility] Stop: 05/18/18 06:59 Last Admin: 05/16/18 05:43 Dose: 300 mls/hr Lactobacillus Rhamnosus (Culturelle) 1 cap PO BID [place] Last Admin: 05/15/18 20:05 Dose: 1 cap Lorazepam (Ativan) 0.5 mg PO Q4H PRN PRN Reason: Anxiety Last Admin: 05/16/18 05:56 Dose: 0.5 mg Nicotine (Nicotrol) 10 mg INH Q1H PRN PRN Reason: Other Last Admin: 05/15/18 10:09 Dose: 10 mg Ondansetron HCl (Zofran) 4 mg IVPUSH Q6H PRN PRN Reason: Nausea/Vomiting Oxycodone/Acetaminophen (Percocet 325-5 Mg) 1 - 2 tab PO Q4H PRN PRN Reason: Pain Last Admin: 05/16/18 05:56 Dose: 1 tab Discontinued Medications Hydrocodone Bitart/Acetaminophen ([place] 325-5 Mg) 2 tab PO Q4H PRN PRN Reason: Pain (moderate 4-6) Last Admin: 05/13/18 15:54 Dose: 2 tab Bupivacaine HCl (Marcaine 0.5%) Confirm Administered Dose 50 ml .ROUTE .STK-MED ONE Stop: 05/12/18 15:05 Last Admin: 05/12/18 16:23 Dose: 5 ml Bupivacaine HCl (Marcaine 0.5%) Confirm Administered Dose 50 ml .ROUTE .STK-MED ONE Stop: 05/15/18 14:26 Bupivacaine HCl (Marcaine 0.5%) 1 ml INJECT .STK-MED ONE Stop: 05/15/18 14:31 Last Admin: 05/15/18 14:30 Dose: 1 ml Diphtheria/Tetanus/Acell Pertussis (Adacel) 0.5 ml IM .ONCE ONE Stop: 05/15/18 15:31 Last Admin: 05/15/18 16:49 Dose: 0.5 ml Fentanyl (Sublimaze) Confirm Administered Dose 100 mcg .ROUTE .STK-MED ONE Stop: 05/12/18 15:32 Fentanyl (Sublimaze) Confirm Administered Dose 100 mcg .ROUTE .K-MED ONE Stop: 05/15/18 14:09 Fentanyl (Sublimaze) Confirm Administered Dose 100 mcg .ROUTE .STK-MED ONE Stop: 05/15/18 14:21 Lactated Ringer's (Ringers, Lactated) 1,000 mls @ 150 mls/hr IV ASDIRECTED [facility] Last Admin: 05/12/18 15:46 Dose: 500 mls/hr Clindamycin Phosphate 900 mg/ (Sodium Chloride) 106 mls @ 200 mls/hr IV ONETIME ONE Stop: 05/12/18 16:31 Last Admin: 05/12/18 15:46 Dose: 200 mls/hr Levofloxacin/Dextrose 500 mg/ (Premix) 100 mls @ 100 mls/hr IV ONETIME ONE Stop: 05/12/18 16:59 Last Admin: 05/12/18 15:46 Dose: 100 mls/hr Lactated Ringer's (Ringers, Lactated) 1,000 mls @ 500 mls/hr IV ASDIRECTED [facility] Last Admin: 05/12/18 18:02 Dose: 500 mls/hr Piperacillin Sod/Tazobactam (Sod 3.375 gm/ Sodium Chloride) 50 mls @ 100 mls/ hr IV Q6H [facility] Stop: 05/18/18 12:29 Last Admin: 05/13/18 05:33 Dose: 100 mls/hr Lactated Ringer's (Ringers, Lactated) 1,000 mls @ 150 mls/hr IV ASDIRECTED [facility] Last Infusion: 05/13/18 12:37 Dose: 75 mls/hr Piperacillin/Tazobactam/ (Dextrose 3.375 gm/ Premix) 50 mls @ 100 mls/hr IV Q6H [facility] Stop: 05/18/18 12:29 Last Admin: 05/15/18 05:17 Dose: 100 mls/hr Lactated Ringer's (Ringers, Lactated) 1,000 mls @ 75 mls/hr IV ASDIRECTED [facility] Last Admin: 05/14/18 03:01 Dose: 75 mls/hr Lidocaine/Epinephrine (Xylocaine 1% With Epinephrine 1:100,000) Confirm Administered Dose 50 ml .ROUTE .STK-MED ONE Stop: 05/12/18 15:05 Last Admin: 05/12/18 16:23 Dose: 5 ml Lidocaine/Epinephrine (Xylocaine 1% With Epinephrine 1:100,000) Confirm Administered Dose 50 ml .ROUTE .STK-MED ONE Stop: 05/15/18 14:26 Last Admin: 05/15/18 14:55 Dose: 1 ml Midazolam HCl (Versed 1 Mg/Ml) Confirm Administered Dose 2 mg .ROUTE .STK-MED ONE Stop: 05/12/18 15:32 Midazolam HCl (Versed 1 Mg/Ml) Confirm Administered Dose 2 mg .ROUTE .STK-MED ONE Stop: 05/12/18 16:00 Midazolam HCl (Versed 1 Mg/Ml) Confirm Administered Dose 2 mg .ROUTE .STK-MED ONE Stop: 05/15/18 14:09 Oxycodone/Acetaminophen (Percocet 325-5 Mg) 1 - 2 tab PO Q4H PRN PRN Reason: Pain Last Admin: 05/14/18 05:54 Dose: 1 tab Potassium Chloride (Klor-Con M20) 20 meq PO ONETIME ONE Stop: 05/12/18 18:39 Last Admin: 05/12/18 20:28 Dose: 20 meq Propofol (Diprivan 20 Ml) Confirm Administered Dose 200 mg .ROUTE .STK-MED ONE Stop: 05/12/18 15:32 Propofol (Diprivan 20 Ml) Confirm Administered Dose 200 mg .ROUTE .STK-MED ONE Stop: 05/12/18 16:01 Propofol (Diprivan 20 Ml) Confirm Administered Dose 200 mg .ROUTE .STK-MED ONE Stop: 05/12/18 16:10 Propofol (Diprivan 20 Ml) Confirm Administered Dose 200 mg .ROUTE .STK-MED ONE Stop: 05/15/18 14:09 Propofol (Diprivan 20 Ml) Confirm Administered Dose 200 mg .ROUTE .STK-MED ONE Stop: 05/15/18 14:18 - Exam Wound/Incisions: Drainage, Erythema Improving General: Alert, Oriented, Cooperative, No Acute Distress Lungs: Clear to Auscultation, Normal Respiratory Effort Cardiovascular: Regular Rate, Regular Rhythm GI/Abdominal Exam: Normal Bowel Sounds, Other (Suprapubic abscess cavity and right groin cavity packing removed. Incisions appear OK. ) Extremities: Normal Inspection Skin: Warm, Dry. No: Intact Neurological: No New Focal Deficit Psy/Mental Status: Alert, Normal Affect, Normal Mood, Anxious - Problem List & Annotations (1) Abscess SNOMED Code(s): 424600533 Code(s): L02.91 - CUTANEOUS ABSCESS, UNSPECIFIED Status: Acute Current Visit: Yes (2) Cellulitis of abdominal wall SNOMED Code(s): 86150415 Code(s): L03.311 - CELLULITIS OF ABDOMINAL WALL Status: Acute Current Visit: Yes - Problem List Review Problem List Initiated/Reviewed/Updated: Yes - My Orders Last 24 Hours: Active Orders 24 hr Category Date Time Status Regular Diet [DIET] Diet 05/15/18 Dinner Active BASIC METABOLIC PANEL,BMP [CHEM] DAILY Lab 05/17/18 05:11 Ordered BASIC METABOLIC PANEL,BMP [CHEM] DAILY Lab 05/18/18 05:11 Ordered CBC W/O DIFF,HEMOGRAM [HEME] DAILY Lab 05/17/18 05:11 Ordered CBC W/O DIFF,HEMOGRAM [HEME] DAILY Lab 05/18/18 05:11 Ordered CULTURE ANAEROBIC [RM] Routine Lab 05/15/18 14:54 Results CULTURE WOUND + SMEAR [RM] Routine Lab 05/15/18 14:54 Results Nicotine [Nicotrol] Med 05/15/18 09:20 Active 10 mg INH Q1H PRN Medication Orders Docusate Sodium (Colace) 100 mg PO BID PRN PRN Reason: Constipation Last Admin: 05/15/18 09:01 Dose: 100 mg Admin: 05/14/18 07:35 Dose: 100 mg Admin: 05/13/18 11:12 Dose: 100 mg Hydromorphone HCl (Dilaudid) 1 mg IVPUSH Q3H PRN PRN Reason: Abdominal Pain Last Admin: 05/16/18 08:23 Dose: 1 mg Admin: 05/15/18 18:11 Dose: 1 mg Admin: 05/15/18 09:01 Dose: 1 mg Admin: 05/14/18 19:24 Dose: 1 mg Admin: 05/14/18 07:35 Dose: 1 mg Admin: 05/13/18 19:49 Dose: 1 mg Admin: 05/13/18 15:46 Dose: 1 mg Admin: 05/13/18 05:30 Dose: 1 mg Admin: 05/12/18 21:39 Dose: 1 mg Linezolid 600 mg/ Premix 300 mls @ 300 mls/hr IV Q12H [facility] Stop: 05/18/18 06:59 Last Admin: 05/16/18 05:43 Dose: 300 mls/hr Infusion: 05/15/18 19:09 Dose: 300 mls/hr Admin: 05/15/18 18:09 Dose: 300 mls/hr Infusion: 05/15/18 06:57 Dose: 300 mls/hr Admin: 05/15/18 05:57 Dose: 300 mls/hr Infusion: 05/14/18 18:46 Dose: 300 mls/hr Admin: 05/14/18 17:46 Dose: 300 mls/hr Infusion: 05/14/18 07:29 Dose: 300 mls/hr Admin: 05/14/18 06:29 Dose: 300 mls/hr Infusion: 05/13/18 18:07 Dose: 300 mls/hr Admin: 05/13/18 17:07 Dose: 300 mls/hr Infusion: 05/13/18 07:21 Dose: 300 mls/hr Admin: 05/13/18 06:21 Dose: 300 mls/hr Infusion: 05/12/18 20:36 Dose: 300 mls/hr Admin: 05/12/18 19:36 Dose: 300 mls/hr Lactobacillus Rhamnosus (Culturelle) 1 cap PO BID [place] Last Admin: 05/15/18 20:05 Dose: 1 cap Admin: 05/15/18 08:16 Dose: 1 cap Admin: 05/14/18 20:39 Dose: 1 cap Admin: 05/14/18 09:18 Dose: 1 cap Admin: 05/13/18 20:35 Dose: 1 cap Admin: 05/13/18 12:38 Dose: 1 cap Lorazepam (Ativan) 0.5 mg PO Q4H PRN PRN Reason: Anxiety Last Admin: 05/16/18 05:56 Dose: 0.5 mg Admin: 05/16/18 00:20 Dose: 0.5 mg Admin: 05/15/18 20:33 Dose: 0.5 mg Admin: 05/15/18 16:14 Dose: 0.5 mg Admin: 05/15/18 07:51 Dose: 0.5 mg Admin: 05/14/18 21:37 Dose: 0.5 mg Admin: 05/14/18 13:18 Dose: 0.5 mg Admin: 05/14/18 05:54 Dose: 0.5 mg Admin: 05/14/18 00:17 Dose: 0.5 mg Admin: 05/13/18 19:48 Dose: 0.5 mg Nicotine (Nicotrol) 10 mg INH Q1H PRN PRN Reason: Other Last Admin: 05/15/18 10:09 Dose: 10 mg Ondansetron HCl (Zofran) 4 mg IVPUSH Q6H PRN PRN Reason: Nausea/Vomiting Oxycodone/Acetaminophen (Percocet 325-5 Mg) 1 - 2 tab PO Q4H PRN PRN Reason: Pain Last Admin: 05/16/18 05:56 Dose: 1 tab Admin: 05/16/18 00:20 Dose: 1 tab Admin: 05/15/18 20:33 Dose: 1 tab Admin: 05/15/18 16:13 Dose: 2 tab Admin: 05/15/18 10:25 Dose: 1 tab Admin: 05/15/18 05:22 Dose: 1 tab Admin: 05/15/18 00:03 Dose: 1 tab Admin: 05/14/18 20:19 Dose: 2 tab Admin: 04/05/19 11:09 Dose: 1 tab - Assessment Assessment (Free Text/Narrative):: Packing is removed. He is taking a shower, his incisions will be repacked. Cellulitis less. - Plan Plan (Free Text/Narrative):: Continue Zyvox and wound care.
[2018-05-16] MEDS: Lactobacillus Rhamnosus GG (Probiotic) Cap PO SCH ×2 (09:44→21:33)
--- NOTE | 2018-05-16 11:37 | PCM.CONSN ---
- General Info Date of Service: 05/16/18 Subjective Update: Russ has done well since further debridement yesterday, vital signs stable and he has remained afebrile. Continues to experience pain across the suprapubic area, especially in areas of incisions. Erythema is further improved since yesterday and he is feeling somewhat better with improvement in appetite and energy level. White blood cell count is now down to 16,500. Functional Status: Reports: Tolerating Diet, Ambulating, Urinating - Review of Systems General: Denies: Fever, Chills Pulmonary: Reports: No Symptoms Cardiovascular: Reports: No Symptoms Gastrointestinal: Reports: No Symptoms Skin: Reports: Other (Pain around incisions in the suprapubic area and right groin) - Patient Data Vitals - Most Recent: Last Vital Signs Temp 97.8 F 05/16/18 10:40 Pulse 69 05/16/18 10:40 Resp 16 05/16/18 10:40 BP 113/68 05/16/18 10:40 Pulse Ox 96 05/16/18 10:40 Weight - Most Recent: 140 lb 0.002 oz I&O - Last 24 Hours: Intake & Output 05/15/18 05/16/18 05/16/18 22:59 06:59 14:59 Intake Total 300 Balance 300 Lab Results Last 24 Hours: Laboratory Results - last 24 hr 05/16/18 05/16/18 Range/Units 05:11 05:11 WBC 16.5 H (4.5-11.0) K/uL RBC 4.91 (4.30-5.90) M/uL Hgb 14.0 (12.0-15.0) g/dL Hct 41.7 (40.0-54.0) % MCV 85 (80-98) fL MCH 29 (27-31) pg MCHC 34 (32-36) % Plt Count 378 (150-400) K/uL Sodium 136 L (140-148) mmol/L Potassium 4.3 (3.6-5.2) mmol/L Chloride 101 (100-108) mmol/L Carbon Dioxide 25 (21-32) mmol/L Anion Gap 14.3 H (5.0-14.0) mmol/L BUN 13 (7-18) mg/dL Creatinine 1.2 (0.8-1.3) mg/dL Est Cr Clr Drug Dosing 82.32 mL/min Estimated GFR (MDRD) > 60 (>60) Glucose 86 (74-106) mg/dL Calcium 9.2 (8.5-10.1) mg/dL Gregg Results Last 24 Hours: Microbiology 05/15/18 14:54 Gram Stain - Final Groin, Unspecified Wound Culture - Preliminary Anaerobic Culture - Preliminary NO GROWTH AFTER 1 DAY 05/12/18 16:40 Gram Stain - Final Groin, Unspecified Wound Culture - Final (Mrsa) Staphylococcus Aureus Anaerobic Culture - Final NO GROWTH AFTER 3 DAYS 05/12/18 15:37 Aerobic Blood Culture - Preliminary Blood - Venous - Lab Draw NO GROWTH AFTER 3 DAYS Anaerobic Blood Culture - Preliminary NO GROWTH AFTER 3 DAYS 05/12/18 15:37 Aerobic Blood Culture - Preliminary Blood - Venous NO GROWTH AFTER 3 DAYS Anaerobic Blood Culture - Preliminary NO GROWTH AFTER 3 DAYS Med Orders - Current: Current Medications Docusate Sodium (Colace) 100 mg PO BID PRN PRN Reason: Constipation Last Admin: 05/15/18 09:01 Dose: 100 mg Hydromorphone HCl (Dilaudid) 1 mg IVPUSH Q3H PRN PRN Reason: Abdominal Pain Last Admin: 05/16/18 08:23 Dose: 1 mg Linezolid 600 mg/ Premix 300 mls @ 300 mls/hr IV Q12H [facility] TO [facility] Stop: 05/18/18 06:59 Last Admin: 05/16/18 05:43 Dose: 300 mls/hr Lactobacillus Rhamnosus (Culturelle) 1 cap PO BID SHAQUILLE Last Admin: 05/16/18 09:44 Dose: 1 cap Lorazepam (Ativan) 0.5 mg PO Q4H PRN PRN Reason: Anxiety Last Admin: 05/16/18 05:56 Dose: 0.5 mg Nicotine (Nicotrol) 10 mg INH Q1H PRN PRN Reason: Other Last Admin: 05/15/18 10:09 Dose: 10 mg Ondansetron HCl (Zofran) 4 mg IVPUSH Q6H PRN PRN Reason: Nausea/Vomiting Oxycodone/Acetaminophen (Percocet 325-5 Mg) 1 - 2 tab PO Q4H PRN PRN Reason: Pain Last Admin: 05/16/18 09:39 Dose: 2 tab Discontinued Medications Hydrocodone Bitart/Acetaminophen (Madill 325-5 Mg) 2 tab PO Q4H PRN PRN Reason: Pain (moderate 4-6) Last Admin: 05/13/18 15:54 Dose: 2 tab Bupivacaine HCl (Marcaine 0.5%) Confirm Administered Dose 50 ml .ROUTE .STK-MED ONE Stop: 05/12/18 15:05 Last Admin: 05/12/18 16:23 Dose: 5 ml Bupivacaine HCl (Marcaine 0.5%) Confirm Administered Dose 50 ml .ROUTE .STK-MED ONE Stop: 05/15/18 14:26 Bupivacaine HCl (Marcaine 0.5%) 1 ml INJECT .STK-MED ONE Stop: 05/15/18 14:31 Last Admin: 05/15/18 14:30 Dose: 1 ml Diphtheria/Tetanus/Acell Pertussis (Adacel) 0.5 ml IM .ONCE ONE Stop: 05/15/18 15:31 Last Admin: 05/15/18 16:49 Dose: 0.5 ml Fentanyl (Sublimaze) Confirm Administered Dose 100 mcg .ROUTE .STK-MED ONE Stop: 05/12/18 15:32 Fentanyl (Sublimaze) Confirm Administered Dose 100 mcg .ROUTE .STK-MED ONE Stop: 05/15/18 14:09 Fentanyl (Sublimaze) Confirm Administered Dose 100 mcg .ROUTE .STK-MED ONE Stop: 05/15/18 14:21 Lactated Ringer's (Ringers, Lactated) 1,000 mls @ 150 mls/hr IV ASDIRECTED [facility]END[facility] SALE TO [facility] Last Admin: 05/12/18 15:46 Dose: 500 mls/hr Clindamycin Phosphate 900 mg/ (Sodium Chloride) 106 mls @ 200 mls/hr IV ONETIME ONE Stop: 05/12/18 16:31 Last Admin: 05/12/18 15:46 Dose: 200 mls/hr Levofloxacin/Dextrose 500 mg/ (Premix) 100 mls @ 100 mls/hr IV ONETIME ONE Stop: 05/12/18 16:59 Last Admin: 05/12/18 15:46 Dose: 100 mls/hr Lactated Ringer's (Ringers, Lactated) 1,000 mls [facility] Admin: 05/12/18 18:02 Dose: 500 mls/hr Piperacillin Sod/Tazobactam (Sod 3.375 gm/ Sodium Chloride) 50 mls @ 100 mls/ hr IV Q6H [facility] TO [facility] Stop: 05/18/18 12:29 Last Admin: 05/13/18 05:33 Dose: 100 mls/hr Lactated Ringer's (Ringers, Lactated) 1,000 mls @ 150 mls/hr IV ASDIRECTED [facility] TO [facility] Last Infusion: 05/13/18 12:37 Dose: 75 mls/hr Piperacillin/Tazobactam/ (Dextrose 3.375 gm/ Premix) 50 mls @ 100 mls/hr IV Q6H [facility] Stop: 05/18/18 12:29 Last Admin: 05/15/18 05:17 Dose: 100 mls/hr Lactated Ringer's (Ringers, Lactated) 1,000 mls @ 75 mls/hr IV ASDIRECTED [facility] TO [facility] Last Admin: 05/14/18 03:01 Dose: 75 mls/hr Lidocaine/Epinephrine (Xylocaine 1% With Epinephrine 1:100,000) Confirm Administered Dose 50 ml .ROUTE .STK-MED ONE Stop: 05/12/18 15:05 Last Admin: 05/12/18 16:23 Dose: 5 ml Lidocaine/Epinephrine (Xylocaine 1% With Epinephrine 1:100,000) Confirm Administered Dose 50 ml .ROUTE .STK-MED ONE Stop: 05/15/18 14:26 Last Admin: 05/15/18 14:55 Dose: 1 ml Midazolam HCl (Versed 1 Mg/Ml) Confirm Administered Dose 2 mg .ROUTE .STK-MED ONE Stop: 05/12/18 15:32 Midazolam HCl (Versed 1 Mg/Ml) Confirm Administered Dose 2 mg .ROUTE .STK-MED ONE Stop: 05/12/18 16:00 Midazolam HCl (Versed 1 Mg/Ml) Confirm Administered Dose 2 mg .ROUTE .STK-MED ONE Stop: 05/15/18 14:09 Oxycodone/Acetaminophen (Percocet 325-5 Mg) 1 - 2 tab PO Q4H PRN PRN Reason: Pain Last Admin: 05/14/18 05:54 Dose: 1 tab Potassium Chloride (Klor-Con M20) 20 meq PO ONETIME ONE Stop: 05/12/18 18:39 Last Admin: 05/12/18 20:28 Dose: 20 meq Propofol (Diprivan 20 Ml) Confirm Administered Dose 200 mg .ROUTE .STK-MED ONE Stop: 05/12/18 15:32 Propofol (Diprivan 20 Ml) Confirm Administered Dose 200 mg .ROUTE .STK-MED ONE Stop: 05/12/18 16:01 Propofol (Diprivan 20 Ml) Confirm Administered Dose 200 mg .ROUTE .STK-MED ONE Stop: 05/12/18 16:10 Propofol (Diprivan 20 Ml) Confirm Administered Dose 200 mg .ROUTE .STK-MED ONE Stop: 05/15/18 14:09 Propofol (Diprivan 20 Ml) Confirm Administered Dose 200 mg .ROUTE .STK-MED ONE Stop: 05/15/18 14:18 - Exam General: Alert, Oriented, Cooperative, Mild Distress Lungs: Clear to Auscultation, Normal Respiratory Effort Cardiovascular: Regular Rate, Regular Rhythm, No Murmurs GI/Abdominal Exam: Soft, Non-Tender, No Organomegaly, No Distention Skin: Other (Erythema markedly improved, persistent tenderness around both incisions.) Consult PN Assessment/Plan Procedures: Procedures CHEST X-RAY 2VW FRONTAL&LATL (01/21/15) EMERGENCY DEPT VISIT (10/21/15) EMERGENCY DEPT VISIT (01/21/15) EMERGENCY DEPT VISIT (02/02/13) EMERGENCY DEPT VISIT (01/09/13) THER/PROPH/DIAG INJ SC/IM (10/21/15) X-RAY EXAM KNEE 4 OR MORE (08/12/14) X-RAY EXAM OF KNEE 3 (10/21/15) Problem List Initiated/Reviewed/Updated: Yes Plan: ASSESSMENT AND RECOMMENDATIONS ABSCESS AND ASSOCIATED CELLULITIS WITH SEPSIS-further improvement in erythema over the last 24 hours, mixing machine tender around each incision. MRSA has grown from initial wound culture. Cultures remain negative. -Continue IV Zyvox -To OR in a.m. for further debridement and dressing change -Saline lock IV -medicate for pain. Hydrocodone po evry 4 hours prn -IV Dilaudid 1mg IV every 3 hrs prn for pain not controlled by Hydrocodone -advised to use IS Hypokalemia- resolved Tobacco use -Nicotine inhaler
[2018-05-17] MEDS: Acetaminophen/oxyCODONE 325-5 MG Tab PO PRN ×4 (03:15→23:56)
[2018-05-17] MEDS: Linezolid 600 MG in Premix Bag 1 BAG IV SCH ×2 (06:19→18:14)
--- NOTE | 2018-05-17 07:55 | OR ---
DATE OF PROCEDURE: 05/15/2018 PREOPERATIVE DIAGNOSIS: Right groin abscess. POSTOPERATIVE DIAGNOSIS: Right groin abscess. PROCEDURE: Incision and drainage of right groin abscess. SURGEON: Mingo Gallardo MD ANESTHESIA: IV anesthesia with monitored anesthesia care. INDICATION: This 27-year-old white male presented for health care three days ago. He was found to have a huge suprapubic abscess, actually it was more as if purulent material was diffusely distributed throughout the subcutaneous tissue in the suprapubic area. A 7 cm elliptical incision was made to drain the material. Gram stain and culture returned gram-positive cocci, which was found to be MRSA. He has been on Zyvox and Zosyn. We stopped the Zosyn today when the MRSA diagnosis came back. He continues having pain and erythema in his lower abdomen, groin, and thigh. There was some induration laterally to the right. Ultrasound of the area shows that there is an actual fluid collection consistent with an abscess. He was taken to the operating room for additional drainage of this abscess. The etiology of the abscess he thinks is from an ingrown hair that he picked and squeezed, possibly there was a spider bite associated with it. I counseled him for the procedure, including risks and alternatives, and he gave his informed consent to proceed. DESCRIPTION OF PROCEDURE: After adequate IV anesthesia was obtained, the patient's lower abdomen, groin, upper thighs and genitalia were prepped and draped in the usual sterile fashion. Time-out was held. We palpated the area and actually were able to express purulent material into the main incision by palpating the abscess in the right groin. However, this was not adequately drained. Lidocaine 1% with epinephrine in a 50:50 mix with 0.5% Marcaine was infiltrated about the right groin. An elliptical incision measuring about 3 cm in length was made to drain the underlying abscess. The entire area was palpated. It was irrigated with saline and suctioned dry. A 1-inch iodoform gauze was then placed to communicate between the 2 incision areas to adequately drain this and packed both incisions with the 1- inch iodoform gauze. A sterile dressing was applied. He tolerated the procedure well. Mingo Gallardo MD /[id number] MTDD
[2018-05-17] MEDS: Lactobacillus Rhamnosus GG (Probiotic) Cap PO SCH ×2 (08:03→21:53)
[2018-05-17] MEDS ORDERED: Bupivacaine 0.5% 50 ML MDV ONE (09:19)
[2018-05-17] MEDS ORDERED: Lidocaine 1% with EPINEPHrine 1:100,000 50 ML MDV ONE (09:19)
[2018-05-17] MEDS ORDERED: fentaNYL 100 MCG/2 ML SDV ONE (11:07)
[2018-05-17] MEDS ORDERED: Propofol 200 MG/20 ML SDV ONE ×2 (11:08→12:24)
[2018-05-17] MEDS ORDERED: Midazolam 1 MG/ML 2 ML SDV ONE ×2 (11:08)
--- NOTE | 2018-05-17 11:30 | PCM.CONSN ---
- General Info Date of Service: 05/17/18 Subjective Update: No acute events overnight. Pain is quite a bit better today. He has not had any fevers. He does report increased pain with dressing changes and the plan is for him to have a dressing change under anesthesia today. No new culture results. Tolerating current antibiotics. White blood cell count all the way down to 11, 000 today. Functional Status: Reports: Pain Controlled - Review of Systems General: Denies: Fever - Patient Data Vitals - Most Recent: Last Vital Signs Temp 36.2 C 05/17/18 07:59 Pulse 55 L 05/17/18 07:59 Resp 16 05/17/18 07:59 BP 109/59 L 05/17/18 07:59 Pulse Ox 97 05/17/18 07:59 Weight - Most Recent: 63.503 kg I&O - Last 24 Hours: Intake & Output 05/16/18 05/17/18 05/17/18 22:59 06:59 14:59 Intake Total 840 300 Balance 840 300 Lab Results Last 24 Hours: Laboratory Results - last 24 hr 05/17/18 05/17/18 Range/Units 05:19 05:19 WBC 11.4 H (4.5-11.0) K/uL RBC 4.94 (4.30-5.90) M/uL Hgb 14.1 (12.0-15.0) g/dL Hct 42.4 (40.0-54.0) % MCV 86 (80-98) fL MCH 29 (27-31) pg MCHC 33 (32-36) % Plt Count 382 (150-400) K/uL Sodium 137 L (140-148) mmol/L Potassium 4.3 (3.6-5.2) mmol/L Chloride 102 (100-108) mmol/L Carbon Dioxide 26 (21-32) mmol/L Anion Gap 13.3 (5.0-14.0) mmol/L BUN 20 H D (7-18) mg/dL Creatinine 1.2 (0.8-1.3) mg/dL Est Cr Clr Drug Dosing 82.32 mL/min Estimated GFR (MDRD) > 60 (>60) Glucose 90 (74-106) mg/dL Calcium 9.1 (8.5-10.1) mg/dL Gregg Results Last 24 Hours: Microbiology 05/15/18 14:54 Gram Stain - Final Groin, Unspecified Wound Culture - Final (Mrsa) Staphylococcus Aureus Anaerobic Culture - Preliminary NO GROWTH AFTER 2 DAYS 05/12/18 15:37 Aerobic Blood Culture - Preliminary Blood - Venous NO GROWTH AFTER 4 DAYS Anaerobic Blood Culture - Preliminary NO GROWTH AFTER 4 DAYS 05/12/18 15:37 Aerobic Blood Culture - Preliminary Blood - Venous - Lab Draw NO GROWTH AFTER 4 DAYS Anaerobic Blood Culture - Preliminary NO GROWTH AFTER 4 DAYS Med Orders - Current: Current Medications Docusate Sodium (Colace) 100 mg PO BID PRN PRN Reason: Constipation Last Admin: 05/15/18 09:01 Dose: 100 mg Hydromorphone HCl (Dilaudid) 1 mg IVPUSH Q3H PRN PRN Reason: Abdominal Pain Last Admin: 05/16/18 21:20 Dose: 1 mg Linezolid 600 mg/ Premix 300 mls @ 300 mls/hr IV Q12H [facility] Stop: 05/18/18 06:59 Last Admin: 05/17/18 06:19 Dose: 300 mls/hr Lactobacillus Rhamnosus (Culturelle) 1 cap PO BID SHAQUILLE Last Admin: 05/17/18 08:03 Dose: Not Given Lorazepam (Ativan) 0.5 mg PO Q4H PRN PRN Reason: Anxiety Last Admin: 05/16/18 19:30 Dose: 0.5 mg Nicotine (Nicotrol) 10 mg INH Q1H PRN PRN Reason: Other Last Admin: 05/15/18 10:09 Dose: 10 mg Ondansetron HCl (Zofran) 4 mg IVPUSH Q6H PRN PRN Reason: Nausea/Vomiting Oxycodone/Acetaminophen (Percocet 325-5 Mg) 1 - 2 tab PO Q4H PRN PRN Reason: Pain Last Admin: 05/17/18 03:15 Dose: 2 tab Discontinued Medications Hydrocodone Bitart/Acetaminophen (Fowler 325-5 Mg) 2 tab PO Q4H PRN PRN Reason: Pain (moderate 4-6) Last Admin: 05/13/18 15:54 Dose: 2 tab Bupivacaine HCl (Marcaine 0.5%) Confirm Administered Dose 50 ml .ROUTE .STK-MED ONE Stop: 05/12/18 15:05 Last Admin: 05/12/18 16:23 Dose: 5 ml Bupivacaine HCl (Marcaine 0.5%) Confirm Administered Dose 50 ml .ROUTE .STK-MED ONE Stop: 05/15/18 14:26 Bupivacaine HCl (Marcaine 0.5%) 1 ml INJECT .STK-MED ONE Stop: 05/15/18 14:31 Last Admin: 05/15/18 14:30 Dose: 1 ml Bupivacaine HCl (Marcaine 0.5%) Confirm Administered Dose 50 ml .ROUTE .STK-MED ONE Stop: 05/17/18 09:20 Diphtheria/Tetanus/Acell Pertussis (Adacel) 0.5 ml IM .ONCE ONE Stop: 05/15/18 15:31 Last Admin: 05/15/18 16:49 Dose: 0.5 ml Fentanyl (Sublimaze) Confirm Administered Dose 100 mcg .ROUTE .STK-MED ONE Stop: 05/12/18 15:32 Fentanyl (Sublimaze) Confirm Administered Dose 100 mcg .ROUTE .STK-MED ONE Stop: 05/15/18 14:09 Fentanyl (Sublimaze) Confirm Administered Dose 100 mcg .ROUTE .STK-MED ONE Stop: 05/15/18 14:21 Fentanyl (Sublimaze) Confirm Administered Dose 100 mcg .ROUTE .STK-MED ONE Stop: 05/17/18 11:08 Lactated Ringer's (Ringers, Lactated) 1,000 mls @ 150 mls/hr IV ASDIRECTED [facility] Last Admin: 05/12/18 15:46 Dose: 500 mls/hr Clindamycin Phosphate 900 mg/ (Sodium Chloride) 106 mls @ 200 mls/hr IV ONETIME ONE Stop: 05/12/18 16:31 Last Admin: 05/12/18 15:46 Dose: 200 mls/hr Levofloxacin/Dextrose 500 mg/ (Premix) 100 mls @ 100 mls/hr IV ONETIME ONE Stop: 05/12/18 16:59 Last Admin: 05/12/18 15:46 Dose: 100 mls/hr Lactated Ringer's (Ringers, Lactated) 1,000 mls @ 500 mls/hr IV ASDIRECTED [facility] Last Admin: 05/12/18 18:02 Dose: 500 mls/hr Piperacillin Sod/Tazobactam (Sod 3.375 gm/ Sodium Chloride) 50 mls @ 100 mls/ hr IV Q6H [facility] Stop: 05/18/18 12:29 Last Admin: 05/13/18 05:33 Dose: 100 mls/hr Lactated Ringer's (Ringers, Lactated) 1,000 mls @ 150 mls/hr IV ASDIRECTED [facility] Last Infusion: 05/13/18 12:37 Dose: 75 mls/hr Piperacillin/Tazobactam/ (Dextrose 3.375 gm/ Premix) 50 mls @ 100 mls/hr IV Q6H [facility] Stop: 05/18/18 12:29 Last Admin: 05/15/18 05:17 Dose: 100 mls/hr Lactated Ringer's (Ringers, Lactated) 1,000 mls @ 75 mls/hr IV ASDIRECTED [facility] Last Admin: 05/14/18 03:01 Dose: 75 mls/hr Lidocaine/Epinephrine (Xylocaine 1% With Epinephrine 1:100,000) Confirm Administered Dose 50 ml .ROUTE .STK-MED ONE Stop: 05/12/18 15:05 Last Admin: 05/12/18 16:23 Dose: 5 ml Lidocaine/Epinephrine (Xylocaine 1% With Epinephrine 1:100,000) Confirm Administered Dose 50 ml .ROUTE .STK-MED ONE Stop: 05/15/18 14:26 Last Admin: 05/15/18 14:55 Dose: 1 ml Lidocaine/Epinephrine (Xylocaine 1% With Epinephrine 1:100,000) Confirm Administered Dose 50 ml .ROUTE .STK-MED ONE Stop: 05/17/18 09:20 Midazolam HCl (Versed 1 Mg/Ml) Confirm Administered Dose 2 mg .ROUTE .STK-MED ONE Stop: 05/12/18 15:32 Midazolam HCl (Versed 1 Mg/Ml) Confirm Administered Dose 2 mg .ROUTE .STK-MED ONE Stop: 05/12/18 16:00 Midazolam HCl (Versed 1 Mg/Ml) Confirm Administered Dose 2 mg .ROUTE .STK-MED ONE Stop: 05/15/18 14:09 Midazolam HCl (Versed 1 Mg/Ml) Confirm Administered Dose 2 mg .ROUTE .STK-MED ONE Stop: 05/17/18 11:09 Midazolam HCl (Versed 1 Mg/Ml) Confirm Administered Dose 2 mg .ROUTE .STK-MED ONE Stop: 05/17/18 11:09 Oxycodone/Acetaminophen (Percocet 325-5 Mg) 1 - 2 tab PO Q4H PRN PRN Reason: Pain Last Admin: 05/14/18 05:54 Dose: 1 tab Potassium Chloride (Klor-Con M20) 20 meq PO ONETIME ONE Stop: 05/12/18 18:39 Last Admin: 05/12/18 20:28 Dose: 20 meq Propofol (Diprivan 20 Ml) Confirm Administered Dose 200 mg .ROUTE .STK-MED ONE Stop: 05/12/18 15:32 Propofol (Diprivan 20 Ml) Confirm Administered Dose 200 mg .ROUTE .STK-MED ONE Stop: 05/12/18 16:01 Propofol (Diprivan 20 Ml) Confirm Administered Dose 200 mg .ROUTE .STK-MED ONE Stop: 05/12/18 16:10 Propofol (Diprivan 20 Ml) Confirm Administered Dose 200 mg .ROUTE .STK-MED ONE Stop: 05/15/18 14:09 Propofol (Diprivan 20 Ml) Confirm Administered Dose 200 mg .ROUTE .STK-MED ONE Stop: 05/15/18 14:18 Propofol (Diprivan 20 Ml) Confirm Administered Dose 200 mg .ROUTE .STK-MED ONE Stop: 05/17/18 11:09 - Exam Quality Assessment: No: Supplemental Oxygen General: Alert, Oriented, Cooperative, No Acute Distress Lungs: Normal Respiratory Effort GI/Abdominal Exam: No Distention Extremities: No Pedal Edema Psy/Mental Status: Alert, Normal Affect Consult PN Assessment/Plan POD#: 2 Procedures: Procedures CHEST X-RAY 2VW FRONTAL&LATL (01/21/15) EMERGENCY DEPT VISIT (10/21/15) EMERGENCY DEPT VISIT (01/21/15) EMERGENCY DEPT VISIT (02/02/13) EMERGENCY DEPT VISIT (01/09/13) THER/PROPH/DIAG INJ SC/IM (10/21/15) X-RAY EXAM KNEE 4 OR MORE (08/12/14) X-RAY EXAM OF KNEE 3 (10/21/15) Problem List Initiated/Reviewed/Updated: Yes Plan: ASSESSMENT AND RECOMMENDATIONS ABSCESS AND ASSOCIATED CELLULITIS WITH SEPSIS - sepsis has resolved. Culture growing MRSA which is pansensitive with the exception of the oxacillin. Patient is currently receiving linezolid. White blood cell count trending down and pain dramatically improved. Still having some trouble with dressing changes. -Currently receiving linezolid -To OR in a.m. for dressing change -Pain control -Multiple good antibiotic options, Bactrim may be a good outpatient antibiotic Hypokalemia- resolved Tobacco dependence -Nicotine inhaler The hospitalist service will sign off at this time. Please feel free to contact me if you have specific questions or concerns. Isaiah Bone M.D.
[2018-05-17] MEDS ORDERED: LORazepam 2 MG/ML SDV IVPUSH ONE (11:35)
[2018-05-17] MEDS: HYDROmorphone 1 MG/ML Syringe IVPUSH PRN (11:39)
[2018-05-17] MEDS ORDERED: Lactated Ringers 1,000 ML ONE (12:24)
[2018-05-18] MEDS: Acetaminophen/oxyCODONE 325-5 MG Tab PO PRN ×4 (05:22→19:51)
[2018-05-18] MEDS: Linezolid 600 MG in Premix Bag 1 BAG IV SCH (05:23)
--- NOTE | 2018-05-18 07:40 | OR ---
DATE OF PROCEDURE: 05/17/2018 PREOPERATIVE DIAGNOSIS: Methicillin-resistant Staphylococcus aureus groin abscesses previously drained, too tender to undergo local wound care. POSTOPERATIVE DIAGNOSIS: Methicillin-resistant Staphylococcus aureus groin abscesses previously drained, too tender to undergo local wound care. PROCEDURE: Cleaning and repacking of open suprapubic and right groin incisions. SURGEON: Mingo Gallardo MD ANESTHESIA: IV anesthesia with monitored anesthesia care. INDICATION: This 27-year-old white male presented to the clinic with a painful erythematous suprapubic mass. It went into his groin and upper thigh. He was referred immediately for incision and drainage of this suprapubic abscess. This was done, culturing MRSA. We started him on Zyvox and Zosyn. When the cultures came back, we stopped the Zosyn. He continued to have a lot of pain, so 2 days ago we took him back to the operating room and drained purulent material from an abscess found in his right groin. We cleaned him up again. Yesterday, we tried to do local wound care. It was very tender, and we could not really do a real good job with it, so we planned on taking him back to the operating room today for further wound care. I counseled him for this, and he gave his informed consent to proceed. DESCRIPTION OF PROCEDURE: After adequate IV anesthesia was obtained, the packing and dressings were removed. His lower abdomen, groin, and genitalia were prepped and draped in the usual sterile fashion. The incisions were irrigated copiously with saline. They were all cleaned, and they looked well. The erythema is improving significantly. The wounds were then packed with 1-inch iodoform gauze. A sterile dressing was applied. He tolerated the procedure well and was brought back to his room in good condition. He was recovered in the operating room, as he has MRSA. Mingo Gallardo MD /[id number] MTDD
[2018-05-18] MEDS: Lactobacillus Rhamnosus GG (Probiotic) Cap PO SCH ×2 (08:16→20:12)
[2018-05-18] MEDS: LORazepam 0.5 MG Tab PO PRN (09:52)
[2018-05-18] MEDS: HYDROmorphone 1 MG/ML Syringe IVPUSH PRN (13:20)
--- NOTE | 2018-05-18 15:16 | PCM.SURGPN ---
- General Info Date of Service: 05/12/18 Date of Surgery/Procedure: 05/18/18 POD#: 6 Post-Op Diagnosis: Suprapubic MRSA abscess with cellulitis and sepsis Admission Diagnosis/Problem: Sepsis affecting skin Functional Status: Reports: Pain Controlled, Tolerating Diet, Ambulating, Urinating - Review of Systems General: Reports: No Symptoms HEENT: Reports: No Symptoms Pulmonary: Reports: No Symptoms Cardiovascular: Reports: No Symptoms Gastrointestinal: Reports: No Symptoms Genitourinary: Reports: No Symptoms Musculoskeletal: Reports: No Symptoms Skin: Reports: Other (Feels much better, still a little sensitive in suprapubic area. ) Neurological: Reports: No Symptoms Psychiatric: Reports: No Symptoms - Patient Data Vitals - Most Recent: Last Vital Signs Temp 97.8 F 05/18/18 13:54 Pulse 58 L 05/18/18 13:54 Resp 16 05/18/18 13:54 BP 103/62 05/18/18 13:54 Pulse Ox 96 05/18/18 13:54 Weight - Most Recent: 140 lb 0.002 oz I&O - Last 24 Hours: Intake & Output 05/18/18 05/18/18 05/18/18 06:59 14:59 22:59 Intake Total 540 800 Balance 540 800 Lab Results Last 24 Hrs: Laboratory Results - last 24 hr 05/18/18 05/18/18 Range/Units 05:00 05:00 WBC 11.6 H (4.5-11.0) K/uL RBC 4.86 (4.30-5.90) M/uL Hgb 14.0 (12.0-15.0) g/dL Hct 42.9 (40.0-54.0) % MCV 88 (80-98) fL MCH 29 (27-31) pg MCHC 33 (32-36) % Plt Count 439 H (150-400) K/uL Sodium 137 L (140-148) mmol/L Potassium 4.1 (3.6-5.2) mmol/L Chloride 103 (100-108) mmol/L Carbon Dioxide 25 (21-32) mmol/L Anion Gap 13.1 (5.0-14.0) mmol/L BUN 22 H (7-18) mg/dL Creatinine 1.1 (0.8-1.3) mg/dL Est Cr Clr Drug Dosing 89.80 mL/min Estimated GFR (MDRD) > 60 (>60) Glucose 91 (74-106) mg/dL Calcium 8.9 (8.5-10.1) mg/dL Gregg Results Last 24 Hrs: Microbiology 05/12/18 15:37 Aerobic Blood Culture - Final Blood - Venous NO GROWTH AFTER 5 DAYS Anaerobic Blood Culture - Final NO GROWTH AFTER 5 DAYS 05/12/18 15:37 Aerobic Blood Culture - Final Blood - Venous - Lab Draw NO GROWTH AFTER 5 DAYS Anaerobic Blood Culture - Final NO GROWTH AFTER 5 DAYS Med Orders - Current: Current Medications Docusate Sodium (Colace) 100 mg PO BID PRN PRN Reason: Constipation Last Admin: 05/15/18 09:01 Dose: 100 mg Hydromorphone HCl (Dilaudid) 1 mg IVPUSH Q3H PRN PRN Reason: Abdominal Pain Last Admin: 05/18/18 13:20 Dose: 1 mg Lactobacillus Rhamnosus (Culturelle) 1 cap PO BID [place] Last Admin: 05/18/18 08:16 Dose: 1 cap Lorazepam (Ativan) 0.5 mg PO Q4H PRN PRN Reason: Anxiety Last Admin: 05/18/18 09:52 Dose: 0.5 mg Nicotine (Nicotrol) 10 mg INH Q1H PRN PRN Reason: Other Last Admin: 05/15/18 10:09 Dose: 10 mg Ondansetron HCl (Zofran) 4 mg IVPUSH Q6H PRN PRN Reason: Nausea/Vomiting Oxycodone/Acetaminophen (Percocet 325-5 Mg) 1 - 2 tab PO Q4H PRN PRN Reason: Pain Last Admin: 05/18/18 14:22 Dose: 2 tab Discontinued Medications Hydrocodone Bitart/Acetaminophen ([place] 325-5 Mg) 2 tab PO Q4H PRN PRN Reason: Pain (moderate 4-6) Last Admin: 05/13/18 15:54 Dose: 2 tab Bupivacaine HCl (Marcaine 0.5%) Confirm Administered Dose 50 ml .ROUTE .STK-MED ONE Stop: 05/12/18 15:05 Last Admin: 05/12/18 16:23 Dose: 5 ml Bupivacaine HCl (Marcaine 0.5%) Confirm Administered Dose 50 ml .ROUTE .STK-MED ONE Stop: 05/15/18 14:26 Bupivacaine HCl (Marcaine 0.5%) 1 ml INJECT .STK-MED ONE Stop: 05/15/18 14:31 Last Admin: 05/15/18 14:30 Dose: 1 ml Bupivacaine HCl (Marcaine 0.5%) Confirm Administered Dose 50 ml .ROUTE .STK-MED ONE Stop: 05/17/18 09:20 Diphtheria/Tetanus/Acell Pertussis (Adacel) 0.5 ml IM .ONCE ONE Stop: 05/15/18 15:31 Last Admin: 05/15/18 16:49 Dose: 0.5 ml Fentanyl (Sublimaze) Confirm Administered Dose 100 mcg .ROUTE .STK-MED ONE Stop: 05/12/18 15:32 Fentanyl (Sublimaze) Confirm Administered Dose 100 mcg .ROUTE .STK-MED ONE Stop: 05/15/18 14:09 Fentanyl (Sublimaze) Confirm Administered Dose 100 mcg .ROUTE .STK-MED ONE Stop: 05/15/18 14:21 Fentanyl (Sublimaze) Confirm Administered Dose 100 mcg .ROUTE .STK-MED ONE Stop: 05/17/18 11:08 Lactated Ringer's (Ringers, Lactated) 1,000 mls @ 150 mls/hr IV ASDIRECTED [facility] Last Admin: 05/12/18 15:46 Dose: 500 mls/hr Clindamycin Phosphate 900 mg/ (Sodium Chloride) 106 mls @ 200 mls/hr IV ONETIME ONE Stop: 05/12/18 16:31 Last Admin: 05/12/18 15:46 Dose: 200 mls/hr Levofloxacin/Dextrose 500 mg/ (Premix) 100 mls @ 100 mls/hr IV ONETIME ONE Stop: 05/12/18 16:59 Last Admin: 05/12/18 15:46 Dose: 100 mls/hr Lactated Ringer's (Ringers, Lactated) 1,000 mls @ 500 mls/hr IV ASDIRECTED [facility] Last Admin: 05/12/18 18:02 Dose: 500 mls/hr Linezolid 600 mg/ Premix 300 mls @ 300 mls/hr IV Q12H [facility] Stop: 05/18/18 06:59 Last Admin: 05/18/18 05:23 Dose: 300 mls/hr Piperacillin Sod/Tazobactam (Sod 3.375 gm/ Sodium Chloride) 50 mls @ 100 mls/ hr IV Q6H [facility] Stop: 05/18/18 12:29 Last Admin: 05/13/18 05:33 Dose: 100 mls/hr Lactated Ringer's (Ringers, Lactated) 1,000 mls @ 150 mls/hr IV ASDIRECTED [facility] Last Infusion: 05/13/18 12:37 Dose: 75 mls/hr Piperacillin/Tazobactam/ (Dextrose 3.375 gm/ Premix) 50 mls @ 100 mls/hr IV Q6H [facility] Stop: 05/18/18 12:29 Last Admin: 05/15/18 05:17 Dose: 100 mls/hr Lactated Ringer's (Ringers, Lactated) 1,000 mls @ 75 mls/hr IV ASDIRECTED [facility] Last Admin: 05/14/18 03:01 Dose: 75 mls/hr Lactated Ringer's (Ringers, Lactated) Confirm Administered Dose 1,000 mls @ as directed .ROUTE .STK-MED ONE Stop: 05/17/18 12:25 Lidocaine/Epinephrine (Xylocaine 1% With Epinephrine 1:100,000) Confirm Administered Dose 50 ml .ROUTE .STK-MED ONE Stop: 05/12/18 15:05 Last Admin: 05/12/18 16:23 Dose: 5 ml Lidocaine/Epinephrine (Xylocaine 1% With Epinephrine 1:100,000) Confirm Administered Dose 50 ml .ROUTE .STK-MED ONE Stop: 05/15/18 14:26 Last Admin: 05/15/18 14:55 Dose: 1 ml Lidocaine/Epinephrine (Xylocaine 1% With Epinephrine 1:100,000) Confirm Administered Dose 50 ml .ROUTE .STK-MED ONE Stop: 05/17/18 09:20 Lorazepam (Ativan) 0.5 mg IVPUSH ONETIME ONE Stop: 05/17/18 11:36 Last Admin: 05/17/18 11:48 Dose: 0.5 mg Midazolam HCl (Versed 1 Mg/Ml) Confirm Administered Dose 2 mg .ROUTE .STK-MED ONE Stop: 05/12/18 15:32 Midazolam HCl (Versed 1 Mg/Ml) Confirm Administered Dose 2 mg .ROUTE .STK-MED ONE Stop: 05/12/18 16:00 Midazolam HCl (Versed 1 Mg/Ml) Confirm Administered Dose 2 mg .ROUTE .STK-MED ONE Stop: 05/15/18 14:09 Midazolam HCl (Versed 1 Mg/Ml) Confirm Administered Dose 2 mg .ROUTE .STK-MED ONE Stop: 05/17/18 11:09 Midazolam HCl (Versed 1 Mg/Ml) Confirm Administered Dose 2 mg .ROUTE .STK-MED ONE Stop: 05/17/18 11:09 Oxycodone/Acetaminophen (Percocet 325-5 Mg) 1 - 2 tab PO Q4H PRN PRN Reason: Pain Last Admin: 05/14/18 05:54 Dose: 1 tab Potassium Chloride (Klor-Con M20) 20 meq PO ONETIME ONE Stop: 05/12/18 18:39 Last Admin: 05/12/18 20:28 Dose: 20 meq Propofol (Diprivan 20 Ml) Confirm Administered Dose 200 mg .ROUTE .STK-MED ONE Stop: 05/12/18 15:32 Propofol (Diprivan 20 Ml) Confirm Administered Dose 200 mg .ROUTE .STK-MED ONE Stop: 05/12/18 16:01 Propofol (Diprivan 20 Ml) Confirm Administered Dose 200 mg .ROUTE .STK-MED ONE Stop: 05/12/18 16:10 Propofol (Diprivan 20 Ml) Confirm Administered Dose 200 mg .ROUTE .STK-MED ONE Stop: 05/15/18 14:09 Propofol (Diprivan 20 Ml) Confirm Administered Dose 200 mg .ROUTE .STK-MED ONE Stop: 05/15/18 14:18 Propofol (Diprivan 20 Ml) Confirm Administered Dose 200 mg .ROUTE .STK-MED ONE Stop: 05/17/18 11:09 Propofol (Diprivan 20 Ml) Confirm Administered Dose 200 mg .ROUTE .STK-MED ONE Stop: 05/17/18 12:25 - Exam Wound/Incisions: Healing Well, Erythema Improving (Erythema resolved. ). No: Erythema General: Alert, Oriented, Cooperative, No Acute Distress Extremities: Normal Inspection Skin: Warm, Dry Psy/Mental Status: Alert, Normal Affect, Normal Mood. No: Anxious - Problem List & Annotations (1) Abscess SNOMED Code(s): 631248029 Code(s): L02.91 - CUTANEOUS ABSCESS, UNSPECIFIED Status: Acute Current Visit: Yes (2) Cellulitis of abdominal wall SNOMED Code(s): 24054789 Code(s): L03.311 - CELLULITIS OF ABDOMINAL WALL Status: Acute Current Visit: Yes - Problem List Review Problem List Initiated/Reviewed/Updated: Yes - My Orders Last 24 Hours: Active Orders 24 hr Category Date Time Status Regular Diet [DIET] Diet 05/17/18 Dinner Active Medication Orders Docusate Sodium (Colace) 100 mg PO BID PRN PRN Reason: Constipation Last Admin: 05/15/18 09:01 Dose: 100 mg Admin: 05/14/18 07:35 Dose: 100 mg Admin: 05/13/18 11:12 Dose: 100 mg Hydromorphone HCl (Dilaudid) 1 mg IVPUSH Q3H PRN PRN Reason: Abdominal Pain Last Admin: 05/18/18 13:20 Dose: 1 mg Admin: 05/17/18 11:39 Dose: 1 mg Admin: 05/16/18 21:20 Dose: 1 mg Admin: 05/16/18 08:23 Dose: 1 mg Admin: 05/15/18 18:11 Dose: 1 mg Admin: 05/15/18 09:01 Dose: 1 mg Admin: 05/14/18 19:24 Dose: 1 mg Admin: 05/14/18 07:35 Dose: 1 mg Admin: 05/13/18 19:49 Dose: 1 mg Admin: 05/13/18 15:46 Dose: 1 mg Admin: 05/13/18 05:30 Dose: 1 mg Admin: 05/12/18 21:39 Dose: 1 mg Lactobacillus Rhamnosus (Culturelle) 1 cap PO BID [place] Last Admin: 05/18/18 08:16 Dose: 1 cap Admin: 05/17/18 21:53 Dose: 1 cap Admin: 05/17/18 08:03 Dose: Admin: 05/16/18 21:33 Dose: 1 cap Admin: 05/16/18 09:44 Dose: 1 cap Admin: 05/15/18 20:05 Dose: 1 cap Admin: 05/15/18 08:16 Dose: 1 cap Admin: 05/14/18 20:39 Dose: 1 cap Admin: 05/14/18 09:18 Dose: 1 cap Admin: 05/13/18 20:35 Dose: 1 cap Admin: 05/13/18 12:38 Dose: 1 cap Lorazepam (Ativan) 0.5 mg PO Q4H PRN PRN Reason: Anxiety Last Admin: 05/18/18 09:52 Dose: 0.5 mg Admin: 05/16/18 19:30 Dose: 0.5 mg Admin: 05/16/18 05:56 Dose: 0.5 mg Admin: 05/16/18 00:20 Dose: 0.5 mg Admin: 05/15/18 20:33 Dose: 0.5 mg Admin: 05/15/18 16:14 Dose: 0.5 mg Admin: 05/15/18 07:51 Dose: 0.5 mg Admin: 05/14/18 21:37 Dose: 0.5 mg Admin: 05/14/18 13:18 Dose: 0.5 mg Admin: 05/14/18 05:54 Dose: 0.5 mg Admin: 05/14/18 00:17 Dose: 0.5 mg Admin: 05/13/18 19:48 Dose: 0.5 mg Nicotine (Nicotrol) 10 mg INH Q1H PRN PRN Reason: Other Last Admin: 05/15/18 10:09 Dose: 10 mg Ondansetron HCl (Zofran) 4 mg IVPUSH Q6H PRN PRN Reason: Nausea/Vomiting Oxycodone/Acetaminophen (Percocet 325-5 Mg) 1 - 2 tab PO Q4H PRN PRN Reason: Pain Last Admin: 05/18/18 14:22 Dose: 2 tab Admin: 05/18/18 09:54 Dose: 2 tab Admin: 05/18/18 05:22 Dose: 2 tab Admin: 05/17/18 23:56 Dose: 2 tab Admin: 05/17/18 19:28 Dose: 2 tab Admin: 05/17/18 14:41 Dose: 2 tab Admin: 05/17/18 03:15 Dose: 2 tab Admin: 05/16/18 23:21 Dose: 2 tab Admin: 05/16/18 19:30 Dose: 2 tab Admin: 05/16/18 14:15 Dose: 1 tab Admin: 05/16/18 09:39 Dose: 2 tab Admin: 05/16/18 05:56 Dose: 1 tab Admin: 05/16/18 00:20 Dose: 1 tab Admin: 05/15/18 20:33 Dose: 1 tab Admin: 05/15/18 16:13 Dose: 2 tab Admin: 05/15/18 10:25 Dose: 1 tab Admin: 05/15/18 05:22 Dose: 1 tab Admin: 05/15/18 00:03 Dose: 1 tab Admin: 05/14/18 20:19 Dose: 2 tab Admin: 05/14/18 11:09 Dose: 1 tab - Assessment Assessment (Free Text/Narrative):: Afebrile, WBC 11-12K. Incisions open and clean, no cellulitis. - Plan Plan (Free Text/Narrative):: D/C Zivox. Start Bactrim. Teach him to perform local wound care.
[2018-05-18] MEDS: Sulfamethoxazole/Trimethoprim 800-160 MG Tab PO SCH (20:12)
[2018-05-19] MEDS: Acetaminophen/oxyCODONE 325-5 MG Tab PO PRN ×2 (04:02→08:12)
[2018-05-19] MEDS: Lactobacillus Rhamnosus GG (Probiotic) Cap PO SCH (08:12)
[2018-05-19] MEDS: Sulfamethoxazole/Trimethoprim 800-160 MG Tab PO SCH (08:12)
[2018-05-19 10:59] VITALS: BP 127/58
--- NOTE | 2018-05-19 11:54 | PCM.DCSUM1 ---
Discharge Summary - Hospital Course Free Text/Narrative:: This 27 year old white male was admitted a week ago for a large suprapubic abscess with cellulitis. He was septic. He was started on Zyvox and Zosyn. Cultures ultimately returned MRSA, so the Zosyn was stopped. He developed another groin abscess and was returned to the OR for further cleaning, debriding and drainage. He had a lot of discomfort with dressing changes/wound care so he had one last return to the OR for wound care. Currently he is able to do his own wound care and feels fine. He has been changed from Zyvox to Bactrim. He is discharge home in good condition. Diagnosis: Stroke: No - Discharge Data Discharge Date: 05/19/18 Discharge Disposition: Home, Self-Care 01 Condition: Good - Discharge Diagnosis/Problem(s) (1) Abscess SNOMED Code(s): 799739737 ICD Code: L02.91 - CUTANEOUS ABSCESS, UNSPECIFIED Status: Acute Current Visit: Yes (2) Cellulitis of abdominal wall SNOMED Code(s): 72077902 ICD Code: L03.311 - CELLULITIS OF ABDOMINAL WALL Status: Acute Current Visit: Yes - Patient Summary/Data Operative Procedure(s) Performed: Incision and drainage, repeat incision and drainage, wound care. Consults: Consultations 05/12/18 17:11 Respiratory Care Assess and Treatment [CONS] Routine Comment: Physician Instructions: Post-Op Pneumonia Prevention 05/12/18 17:36 Consult to Physician [CONS] Urgent Consulting Provider: Mike Mata Call Completed to Consulting Physician: Yes Reason for Consult: Sepsis Person Notified: Dr. Mata Date Notified: 05/12/18 Time Notified: 17:30 Hospital Course: See above narrative. - Patient Instructions Diet: Usual Diet as Tolerated Activity: As Tolerated Driving, Other: Do not drive if taking narcotic pain medication Showering/Bathing: May Shower Notify Provider of: Fever, Increased Pain, Swelling and Redness, Drainage, Nausea and/or Vomiting - Discharge Plan *PRESCRIPTION DRUG MONITORING PROGRAM REVIEWED*: No *COPY OF PRESCRIPTION DRUG MONITORING REPORT IN PATIENT RADHA: No Prescriptions/Med Rec: Acetaminophen/oxyCODONE [Percocet 325-5 MG] 1 - 2 tab PO Q4H PRN #30 tablet PRN Reason: Pain Sulfamethoxazole/Trimethoprim [Septra DS] 1 tab PO BID #14 tablet Home Medications: Home Meds Acetaminophen/oxyCODONE [Percocet 325-5 MG] 1 - 2 tab PO Q4H PRN #30 tablet 11/27 [Rx] Docusate Sodium [Colace] 100 mg PO BID PRN cap 05/19/18 [Rx] Lactobacillus Rhamnosus GG [Culturelle] 1 cap PO BID cap 05/19/18 [Rx] Nicotine [Nicotrol] 10 mg INH Q1H PRN cartridge 05/19/18 [Rx] Sulfamethoxazole/Trimethoprim [Septra DS] 1 tab PO BID #14 tablet 05/19/18 [Rx] Patient Handouts: MRSA FAQs - MATHIS Referrals: Mingo Gallardo MD [Physician] - (See me in [facility] on 05/24/2018) - Discharge Summary/Plan Comment DC Time >30 min.: Yes Discharge Summary/Plan Comment: See above narrative. - Patient Data Vitals - Most Recent: Last Vital Signs Temp 98.3 F 05/19/18 10:58 Pulse 59 L 05/19/18 10:58 Resp 16 05/19/18 10:58 BP 127/58 L 05/19/18 10:58 Pulse Ox 95 05/19/18 10:58 Weight - Most Recent: 140 lb 0.002 oz I&O - Last 24 hours: Intake & Output 05/18/18 05/19/18 05/19/18 22:59 06:59 14:59 Intake Total 600 Balance 600 JANEY Results - Last 24 hrs: Microbiology 05/15/18 14:54 Gram Stain - Final Groin, Unspecified Wound Culture - Final (Mrsa) Staphylococcus Aureus Anaerobic Culture - Final NO GROWTH AFTER 3 DAYS Med Orders - Current: Current Medications Docusate Sodium (Colace) 100 mg PO BID PRN PRN Reason: Constipation Last Admin: 05/15/18 09:01 Dose: 100 mg Hydromorphone HCl (Dilaudid) 1 mg IVPUSH Q3H PRN PRN Reason: Abdominal Pain Last Admin: 05/18/18 13:20 Dose: 1 mg Lactobacillus Rhamnosus (Culturelle) 1 cap PO BID [place] Last Admin: 05/19/18 08:12 Dose: 1 cap Lorazepam (Ativan) 0.5 mg PO Q4H PRN PRN Reason: Anxiety Last Admin: 05/18/18 09:52 Dose: 0.5 mg Nicotine (Nicotrol) 10 mg INH Q1H PRN PRN Reason: Other Last Admin: 05/15/18 10:09 Dose: 10 mg Ondansetron HCl (Zofran) 4 mg IVPUSH Q6H PRN PRN Reason: Nausea/Vomiting Oxycodone/Acetaminophen (Percocet 325-5 Mg) 1 - 2 tab PO Q4H PRN PRN Reason: Pain Last Admin: 05/19/18 08:12 Dose: 2 tab Trimethoprim/Sulfamethoxazole (Septra Ds) 1 tab PO BID [place] Last Admin: 05/19/18 08:12 Dose: 1 tab Discontinued Medications Hydrocodone Bitart/Acetaminophen ([place] 325-5 Mg) 2 tab PO Q4H PRN PRN Reason: Pain (moderate 4-6) Last Admin: 05/13/18 15:54 Dose: 2 tab Bupivacaine HCl (Marcaine 0.5%) Confirm Administered Dose 50 ml .ROUTE .STK-MED ONE Stop: 05/12/18 15:05 Last Admin: 05/12/18 16:23 Dose: 5 ml Bupivacaine HCl (Marcaine 0.5%) Confirm Administered Dose 50 ml .ROUTE .STK-MED ONE Stop: 05/15/18 14:26 Bupivacaine HCl (Marcaine 0.5%) 1 ml INJECT .STK-MED ONE Stop: 05/15/18 14:31 Last Admin: 05/15/18 14:30 Dose: 1 ml Bupivacaine HCl (Marcaine 0.5%) Confirm Administered Dose 50 ml .ROUTE .STK-MED ONE Stop: 05/17/18 09:20 Diphtheria/Tetanus/Acell Pertussis (Adacel) 0.5 ml IM .ONCE ONE Stop: 05/15/18 15:31 Last Admin: 05/15/18 16:49 Dose: 0.5 ml Fentanyl (Sublimaze) Confirm Administered Dose 100 mcg .ROUTE .STK-MED ONE Stop: 05/12/18 15:32 Fentanyl (Sublimaze) Confirm Administered Dose 100 mcg .ROUTE .STK-MED ONE Stop: 05/15/18 14:09 Fentanyl (Sublimaze) Confirm Administered Dose 100 mcg .ROUTE .STK-MED ONE Stop: 05/15/18 14:21 Fentanyl (Sublimaze) Confirm Administered Dose 100 mcg .ROUTE .STK-MED ONE Stop: 05/17/18 11:08 Lactated Ringer's (Ringers, Lactated) 1,000 mls @ 150 mls/hr IV ASDIRECTED [facility] Last Admin: 05/12/18 15:46 Dose: 500 mls/hr Clindamycin Phosphate 900 mg/ (Sodium Chloride) 106 mls @ 200 mls/hr IV ONETIME ONE Stop: 05/12/18 16:31 Last Admin: 05/12/18 15:46 Dose: 200 mls/hr Levofloxacin/Dextrose 500 mg/ (Premix) 100 mls @ 100 mls/hr IV ONETIME ONE Stop: 05/12/18 16:59 Last Admin: 05/12/18 15:46 Dose: 100 mls/hr Lactated Ringer's (Ringers, Lactated) 1,000 mls @ 500 mls/hr IV ASDIRECTED [facility] Last Admin: 05/12/18 18:02 Dose: 500 mls/hr Linezolid 600 mg/ Premix 300 mls @ 300 mls/hr IV Q12H [facility] Stop: 05/18/18 06:59 Last Admin: 05/18/18 05:23 Dose: 300 mls/hr Piperacillin Sod/Tazobactam (Sod 3.375 gm/ Sodium Chloride) 50 mls @ 100 mls/ hr IV Q6H [facility] Stop: 05/18/18 12:29 Last Admin: 05/13/18 05:33 Dose: 100 mls/hr Lactated Ringer's (Ringers, Lactated) 1,000 mls @ 150 mls/hr IV ASDIRECTED [facility] Last Infusion: 05/13/18 12:37 Dose: 75 mls/hr Piperacillin/Tazobactam/ (Dextrose 3.375 gm/ Premix) 50 mls @ 100 mls/hr IV Q6H [facility] Stop: 05/18/18 12:29 Last Admin: 05/15/18 05:17 Dose: 100 mls/hr Lactated Ringer's (Ringers, Lactated) 1,000 mls @ 75 mls/hr IV ASDIRECTED [facility] Last Admin: 05/14/18 03:01 Dose: 75 mls/hr Lactated Ringer's (Ringers, Lactated) Confirm Administered Dose 1,000 mls @ as directed .ROUTE .STK-MED ONE Stop: 05/17/18 12:25 Lidocaine/Epinephrine (Xylocaine 1% With Epinephrine 1:100,000) Confirm Administered Dose 50 ml .ROUTE .STK-MED ONE Stop: 05/12/18 15:05 Last Admin: 05/12/18 16:23 Dose: 5 ml Lidocaine/Epinephrine (Xylocaine 1% With Epinephrine 1:100,000) Confirm Administered Dose 50 ml .ROUTE .STK-MED ONE Stop: 05/15/18 14:26 Last Admin: 05/15/18 14:55 Dose: 1 ml Lidocaine/Epinephrine (Xylocaine 1% With Epinephrine 1:100,000) Confirm Administered Dose 50 ml .ROUTE .STK-MED ONE Stop: 05/17/18 09:20 Lorazepam (Ativan) 0.5 mg IVPUSH ONETIME ONE Stop: 05/17/18 11:36 Last Admin: 05/17/18 11:48 Dose: 0.5 mg Midazolam HCl (Versed 1 Mg/Ml) Confirm Administered Dose 2 mg .ROUTE .STK-MED ONE Stop: 05/12/18 15:32 Midazolam HCl (Versed 1 Mg/Ml) Confirm Administered Dose 2 mg .ROUTE .STK-MED ONE Stop: 05/12/18 16:00 Midazolam HCl (Versed 1 Mg/Ml) Confirm Administered Dose 2 mg .ROUTE .STK-MED ONE Stop: 05/15/18 14:09 Midazolam HCl (Versed 1 Mg/Ml) Confirm Administered Dose 2 mg .ROUTE .STK-MED ONE Stop: 05/17/18 11:09 Midazolam HCl (Versed 1 Mg/Ml) Confirm Administered Dose 2 mg .ROUTE .STK-MED ONE Stop: 05/17/18 11:09 Oxycodone/Acetaminophen (Percocet 325-5 Mg) 1 - 2 tab PO Q4H PRN PRN Reason: Pain Last Admin: 05/14/18 05:54 Dose: 1 tab Potassium Chloride (Klor-Con M20) 20 meq PO ONETIME ONE Stop: 05/12/18 18:39 Last Admin: 05/12/18 20:28 Dose: 20 meq Propofol (Diprivan 20 Ml) Confirm Administered Dose 200 mg .ROUTE .STK-MED ONE Stop: 05/12/18 15:32 Propofol (Diprivan 20 Ml) Confirm Administered Dose 200 mg .ROUTE .STK-MED ONE Stop: 05/12/18 16:01 Propofol (Diprivan 20 Ml) Confirm Administered Dose 200 mg .ROUTE .STK-MED ONE Stop: 05/12/18 16:10 Propofol (Diprivan 20 Ml) Confirm Administered Dose 200 mg .ROUTE .STK-MED ONE Stop: 05/15/18 14:09 Propofol (Diprivan 20 Ml) Confirm Administered Dose 200 mg .ROUTE .STK-MED ONE Stop: 05/15/18 14:18 Propofol (Diprivan 20 Ml) Confirm Administered Dose 200 mg .ROUTE .STK-MED ONE Stop: 05/17/18 11:09 Propofol (Diprivan 20 Ml) Confirm Administered Dose 200 mg .ROUTE .STK-MED ONE Stop: 05/17/18 12:25
== END 2018-05-19 13:42 | disposition home or self-care (01) | DRG 720 ==
LOC: JP.SDS 15:01 → JP.MS 17:11
PROVIDERS: ADMIT Surgery; ATTEND Surgery
PROC: 0J9C0ZX Drainage of Pelvic Region Subcutaneous Tissue and Fascia, Open Approach, Diagnostic (ICD-10-PCS; principal; 2018-05-12)
PROC: 0HB7XZZ Excision of Abdomen Skin, External Approach (ICD-10-PCS; 2018-05-12)
PROC: 0J9C0ZX Drainage of Pelvic Region Subcutaneous Tissue and Fascia, Open Approach, Diagnostic (ICD-10-PCS; 2018-05-15)
PROC: 3E0234Z Introduction of Serum, Toxoid and Vaccine into Muscle, Percutaneous Approach (ICD-10-PCS; 2018-05-15)
PROC: 3E10X8Z Irrigation of Skin and Mucous Membranes using Irrigating Substance (ICD-10-PCS; 2018-05-17)
PROC: 2W0 Placement, Anatomical Regions, Change (ICD-10-PCS; 2018-05-17)
DX: A41.02 Sepsis due to Methicillin resistant Staphylococcus aureus (principal); L02.214 Cutaneous abscess of groin; L03.311 Cellulitis of abdominal wall; B95.62 Methicillin resistant Staphylococcus aureus infection as the cause of diseases classified elsewhere; F17.210 Nicotine dependence, cigarettes, uncomplicated; K21.9 Gastro-esophageal reflux disease without esophagitis; E87.6 Hypokalemia; F12.90 Cannabis use, unspecified, uncomplicated; M25.562 Pain in left knee; G89.29 Other chronic pain; Z23 Encounter for immunization
CPT/HCPCS: 36415; 76705; 80048; 80053; 83605; 83735; 85025; 85027; 87040; 87070; 87075; 87077; 87186; 87205; 88304; 90471; 90715; A9270-GY; J1170; J1956; J2020; J2060; J2250; J2543; J2704; J3010; J3490; J7030; J7050; J7120

== ENCOUNTER 2018-07-24 21:04 | Emergency (ER) | payer BC ==
[~2018-07-24 21:04] MED LIST: Bupivacaine 0.5% 10 ML SDV ONE
[2018-07-24 21:13] VITALS: BP 116/65
[2018-07-24] MEDS ORDERED: ceFAZolin 2 GM in Premix Bag 1 BAG IV ONE (21:17)
[2018-07-24] MEDS ORDERED: Sodium Chloride 0.9% 10 ML Syringe FLUSH PRN (21:18)
[2018-07-24] MEDS ORDERED: Morphine 4 MG/ML Syringe IVPUSH ONE (21:19)
[2018-07-24] MEDS ORDERED: Ondansetron 4 MG/2 ML SDV IVPUSH ONE (21:19)
--- NOTE | 2018-07-24 21:37 | EDM.PDOC ---
ED HPI GENERAL MEDICAL PROBLEM - General Chief Complaint: Upper Extremity Injury/Pain Stated Complaint: CUT RIGHT PINKY FINGER Time Seen by Provider: 07/24/18 21:10 Source of Information: Reports: Patient History Limitations: Reports: No Limitations - History of Present Illness INITIAL COMMENTS - FREE TEXT/NARRATIVE: 27 yo male present with acute traumatic injury to right fifth digit. Patient is right handed. Last meal was around 12 noon today. Patient was working on his vehicle when he caught the fifth digit which wrapped his finger and up into the engine. Patient had significant pain in fifth digit and distal tip with slight pain in the proximal muscles of the hands and the tip of the fourth digit. Patient has decreased function of the fifth digit due to deformity. He does have normal sensation distally. He is a smoker and occasional alcohol use. He present with friends for evaluation. - Related Data Allergies Allergy/AdvReac Type Severity Reaction Status Date / Time acetaminophen [From Vicodin] Allergy Hyperactivi Verified 07/24/18 21:30 ty hydrocodone [From Vicodin] Allergy Hyperactivi Verified 07/24/18 21:30 ty Home Meds: Home Meds Lactobacillus Rhamnosus GG [Culturelle] 1 cap PO BID cap 05/19/18 [Rx] Acetaminophen/oxyCODONE [Percocet 325-5 MG] 1 each PO Q6HR PRN 5 Days #20 tab [Rx] Sulfamethoxazole/Trimethoprim [Bactrim Ds Tablet] 1 each PO BID 7 Days #14 tablet 07/24/18 [Rx] cephALEXin [Keflex] 500 mg PO QID 7 Days #28 cap 07/24/18 [Rx] Past Medical History - Past Health History Medical/Surgical History: Denies Medical/Surgical History Gastrointestinal History: Reports: GERD Musculoskeletal History: Reports: Other (See Below) Other Musculoskeletal History: chronic knee pain, from accident last summer, left knee torn ACL Neurological History: Reports: Concussion, Migraines Dermatologic History: Reports: Other (See Below) Other Dermatologic History: abdominal abscess - Infectious Disease History Infectious Disease History: Reports: MRSA - Past Surgical History Neurological Surgical History: Reports: None Social & Family History - Family History Family Medical History: Noncontributory - Caffeine Use Caffeine Use: Reports: Soda Review of Systems - Review of Systems Review Of Systems: ROS reveals no pertinent complaints other than HPI. ED EXAM, GENERAL - Physical Exam Exam: See Below Exam Limited By: No Limitations General Appearance: Alert, WD/WN, Severe Distress (due to right fifth digit injury ) Ears: Normal External Exam, Hearing Grossly Normal Nose: Normal Inspection, Normal Mucosa Throat/Mouth: Normal Inspection, No Airway Compromise Head: Normocephalic Neck: Normal Inspection, Full Range of Motion Respiratory/Chest: No Respiratory Distress Cardiovascular: Normal Peripheral Pulses Extremities: Normal Range of Motion, Arm Pain (right fifth digit significant finger laceration with bone deformity noted. ) Neurological: Alert, Oriented, CN II-XII Intact, Normal Cognition, Normal Gait, Normal Reflexes, No Motor/Sensory Deficits Psychiatric: Normal Affect, Normal Mood Skin Exam: Warm, Dry, Intact, Normal Color, No Rash ED TRAUMA EXTREMITY PROCEDURES - Laceration/Wound Repair Right Distal Digit - 5th (Baby) Lac/Wound Length In cm: 2.5 (near complete distal tip open avulsion fx) Appearance: Subcutaneous, Irregular, Moderately Contaminated, Other (open fracture ) Distal NVT: Other (mallet finger deformity noted. Good perfusion of avulsed soft tissue. ) Anesthetic Type: Digital Local Anesthesia - Lidocaine (Xylocaine): 1% with EPI Local Anesthesia - Bupivicaine (Marcaine): 0.5% with EPI Local Anesthetic Volume: 4cc Skin Prep: Providone-Iodine (Betadine), Saline, Other (soak ) Saline Irrigation (cc's): 500 Exploration/Debridement/Repair: Moderate Debridement, Wound Margins Revised, Multiple Flaps Aligned, Other (non viable tissue debrided. Complete nail avulsion. ) Closed With: Sutures Suture Size: other (5-0) # of Sutures: 6 Suture Type: Nylon Suture Size: other (6-0) # of Sutures: 3 (nailbed repair ) Repaired With: Vicryl Sterile Dressing Applied: Other (ulnar gutter splint applied to keep finger in full extension) Tetanus Status Addressed: Yes (May 2018) Complications: Yes Complication Description: Distal tuft avulsion fracture approximated with soft tissue. Remaining mallet finger deformity splinted in extenson Progress/Comments: pain dorsum mid hand no fracture or laceration noted. Distal tip of fourth digit rupture blood blister with pain noted. No FB or acute fracture noted. - Splinting Right Upper Extremity Pre-Procedure NV Status: Normal Post-Procedure NV Status: Normal Splint Material: Fiberglass Splint Design: Other (Ulnar gutter with fifth and fourth finger in complete extension ) Applied & Form Fitted By: Nurse Provider Post-Splint Application NV Check: NV Status Normal, Good Position Complications: No Course - Vital Signs Last Recorded V/S: Last Vital Signs Temp 37.0 C 07/24/18 21:38 Pulse 93 07/24/18 21:38 Resp 20 07/24/18 21:38 BP 116/65 07/24/18 21:38 Pulse Ox 98 07/24/18 21:38 - Orders/Labs/Meds Orders: Active Orders 24 hr Category Date Time Status Peripheral IV Care [RC] . DIRECTED Care 07/24/18 21:18 Active Sodium Chloride 0.9% [Saline Flush] Med 07/24/18 21:18 Active 10 ml FLUSH ASDIRECTED PRN Peripheral IV Insertion Adult [OM.PC] Stat Oth 07/24/18 21:18 Ordered Medication Orders Sodium Chloride (Saline Flush) 10 ml FLUSH ASDIRECTED PRN PRN Reason: Keep Vein Open Last Admin: 07/24/18 22:02 Dose: 10 ml Meds: Medications Generic Name Dose Route Start Last Admin Trade Name Freq PRN Reason Stop Dose Admin Sodium Chloride 10 ml 07/24/18 21:18 07/24/18 22:02 Saline Flush FLUSH 10 ml ASDIRECTED PRN Administration Keep Vein Open Discontinued Medications Generic Name Dose Route Start Last Admin Trade Name Freq PRN Reason Stop Dose Admin Bupivacaine HCl 10 ml 07/24/18 21:59 Sensorcaine-Mpf 0.5% INJECT 07/24/18 22:00 ONETIME ONE Bupivacaine HCl 10 ml 07/24/18 22:09 07/24/18 22:50 Sensorcaine-Mpf 0.5% INJECT 07/24/18 22:10 10 ml ONETIME STA Administration Cefazolin Sodium/Dextrose 2 gm 50 mls @ 100 mls/hr 07/24/18 21:17 07/24/18 22 :02 / Premix IV 07/24/18 21:46 100 mls/hr ONETIME ONE Administration Lidocaine HCl 5 ml 07/24/18 22:00 07/24/18 22:01 Xylocaine-Mpf 1% INJECT 07/24/18 22:01 5 ml ONETIME ONE Administration Lorazepam Confirm 07/24/18 22:59 Ativan Administered 07/24/18 23:00 Dose 2 mg .ROUTE .STK-MED ONE Lorazepam 1 mg 07/24/18 23:05 07/24/18 23:07 Ativan IVPUSH 07/24/18 23:06 1 mg ONETIME ONE Administration Morphine Sulfate 4 mg 07/24/18 21:19 07/24/18 22:01 Morphine IVPUSH 07/24/18 21:20 4 mg ONETIME ONE Administration Ondansetron HCl 4 mg 07/24/18 21:19 07/24/18 22:01 Zofran IVPUSH 07/24/18 21:20 4 mg ONETIME ONE Administration - Radiology Interpretation Free Text/Narrative:: Right Hand XR: displaced transverse fracture in the distal phalanx tuft noted. Rectal very distracted by 3 mm. Joints the carpal and metacarpal phalangeal joints are unremarkable in appearance the phalanges joints are normal in appearance Soft tissue: Unremarkable. No radiopaque foreign bodies noted. Impression 1. There is a displaced transverse fracture of the distal fifth phalangeal tuft noted. The fracture fragment is distracted by 3mm. Consistent with examination findings. Distal tuft avulsion fracture was approximated with soft tissue repair of the near complete open fracture of distal tuft with laceration. Sterile dressing applied and ulnar gutter splint applied to keep finger in full extension due to mallet finger deformity. Departure - Departure Time of Disposition: 23:40 Disposition: Home, Self-Care 01 Condition: Good Clinical Impression: Traumatic amputation of tip of finger of right hand, Mallet deformity of ring finger - Discharge Information Prescriptions: Acetaminophen/oxyCODONE [Percocet 325-5 MG] 1 each PO Q6HR PRN 5 Days #20 tab PRN Reason: Pain cephALEXin [Keflex] 500 mg PO QID 7 Days #28 cap Sulfamethoxazole/Trimethoprim [Bactrim Ds Tablet] 1 each PO BID 7 Days #14 tablet Instructions: Traumatic Finger Amputation, Crush Injury of the Hand, Easy-to- Read Referrals: PCP,None [Primary Care Provider] - Waldo Ragland MD [Physician] - 2 Days (Call Ortho clinic on Mario am for wound check in 3-5 days to ensure healing and discuss mallet finger extensor tendon injury ) Forms: ED Department Discharge Additional Instructions: 1. Leave splint in place until Orthopedic follow-up. 2. Ibuprofen 600-800mg every 6-8 hours for pain, swelling and inflammation with food if needed. 3. Tylenol 500-1000 mg eery 6-8 hour for mild to moderate pain OR 4. Percocet 1-2 tab every 6 hours for moderate to severe pain (caution driving and working with medications). 5. Bactrim DC BID x 78 days for infection prevention due to significant MRSA history. 6. Keflex 500mg QID or 1,000mg BID x 7 days for infection prevention. 7. Call Orthopedic clinic on Thursday for wound check and evaluation this week to discuss healing or if surgical intervention needed. - My Orders Last 24 Hours: My Active Orders 07/24/18 21:18 Peripheral IV Care [RC] . DIRECTED Sodium Chloride 0.9% [Saline Flush] 10 ml FLUSH ASDIRECTED PRN Peripheral IV Insertion Adult [OM.PC] Stat - Assessment/Plan Last 24 Hours: My Active Orders 07/24/18 21:18 Peripheral IV Care [RC] . DIRECTED Sodium Chloride 0.9% [Saline Flush] 10 ml FLUSH ASDIRECTED PRN Peripheral IV Insertion Adult [OM.PC] Stat
[2018-07-24] MEDS ORDERED: Bupivacaine 0.5% 10 ML SDV INJECT ONE (21:59)
--- NOTE | 2018-07-24 22:07 | CRLCR ---
INDICATION: Fourth and fifth digit hand injury TECHNIQUE: Hand radiograph 3 views right COMPARISON: None FINDINGS: Bone: There is a displaced transverse fracture in the distal 5th phalangeal tuft noted. The fracture fragment is distracted by 3 mm. Joint: The carpal and metacarpal-phalangeal joints are unremarkable in appearance. The interphalangeal joints are normal in appearance. Soft tissue: Unremarkable. No radiopaque foreign bodies are seen. IMPRESSION: 1. There is a displaced transverse fracture in the distal 5th phalangeal tuft noted. The fracture fragment is distracted by 3 mm. Dictated by Roberth Fraga MD @ 07/24/2018 10:05:35 PM Dictated by: Roberth Fraga MD @ 07/24/2018 22:05:40 (Electronically Signed)
[2018-07-24] MEDS ORDERED: Bupivacaine 0.5% 10 ML SDV INJECT STA (22:09)
[2018-07-24] MEDS ORDERED: LORazepam 2 MG/ML SDV ONE (22:59)
[2018-07-24] MEDS ORDERED: LORazepam 2 MG/ML SDV IVPUSH ONE (23:05)
== END 2018-07-25 00:04 | disposition home or self-care (01) ==
LOC: JP.ED 21:04
DX: S68.616A Complete traumatic transphalangeal amputation of right little finger, initial encounter (principal); Z79.899 Other long term (current) drug therapy; Z88.5 Allergy status to narcotic agent; W22.8XXA Striking against or struck by other objects, initial encounter
CPT/HCPCS: 11760; 73130; 96365; 96375; 99283; J0690; J2001; J2060; J2270; J2405; J3490

== ENCOUNTER 2018-08-16 07:14 | Day surgery (SDC) | payer BC ==
[2018-08-16] MEDS ORDERED: ceFAZolin 1 GM in Premix Bag 1 BAG IV ONE (08:30)
[2018-08-16] MEDS ORDERED: Nozin Nasal Sanitizer NASBOTH ONE (08:30)
[2018-08-16] MEDS ORDERED: Lactated Ringers 1,000 ML IV SCH (08:30)
[2018-08-16] MEDS ORDERED: Ondansetron 4 MG/2 ML SDV ONE (08:31)
[2018-08-16] MEDS ORDERED: Propofol 200 MG/20 ML SDV ONE (08:31)
[2018-08-16] MEDS ORDERED: Glycopyrrolate 0.2 MG/ML 5 ML MDV ONE (08:31)
[2018-08-16] MEDS ORDERED: Dexamethasone 4 MG/ML SDV ONE (08:31)
[2018-08-16] MEDS ORDERED: fentaNYL 250 MCG/5 ML SDV ONE ×2 (08:31→10:48)
[2018-08-16] MEDS ORDERED: Rocuronium 50 MG/5 ML Vial ONE ×2 (08:31→12:02)
[2018-08-16] MEDS ORDERED: Neostigmine Methylsulfate 1 MG/ML 5 ML Syringe ONE (08:31)
[2018-08-16] MEDS ORDERED: Succinylcholine 200 MG/10 ML MDV ONE (08:31)
[2018-08-16] MEDS ORDERED: Sodium Chloride 0.9% 10 ML ONE (08:35)
[2018-08-16] MEDS ORDERED: Phenylephrine 1% 10 MG/ML SDV ONE (08:35)
[2018-08-16] MEDS ORDERED: Lactated Ringers 1,000 ML ONE ×2 (08:37→11:36)
[2018-08-16] MEDS: Bupivacaine 0.5% 50 ML MDV ONE ×2 (10:46→12:12)
[2018-08-16] MEDS: Bupivacaine 0.5%/EPINEPHrine 1:200,000 50 ML MDV ONE ×2 (10:47→11:40)
[2018-08-16] MEDS ORDERED: fentaNYL 100 MCG/2 ML SDV ONE (12:00)
[2018-08-16] MEDS ORDERED: Ketorolac 60 MG/2 ML SDV ONE (12:08)
[2018-08-16] MEDS ORDERED: Acetaminophen/oxyCODONE 325-5 MG Tab PO PRN (13:25)
[2018-08-16 15:20] VITALS: BP 134/74; PULSE 81
--- NOTE | 2018-08-16 21:29 | OR ---
DATE OF PROCEDURE: 08/16/2018 PREOPERATIVE DIAGNOSES: 1. Chronic anterior cruciate ligament tear, left knee, with instability. 2. Medial meniscus tear, left knee. 3. Extensor tendon rupture with mallet finger deformity, 5th finger, right hand. POSTOPERATIVE DIAGNOSES: 1. Chronic anterior cruciate ligament tear, left knee, with instability. 2. Complex tear, medial meniscus. 3. Extensor tendon rupture with mallet finger deformity, 5th finger, right hand. PROCEDURES: 1. Arthroscopically assisted anterior cruciate ligament reconstruction, left knee, using patellar tendon autograft. 2. Arthroscopic medial meniscus repair. 3. Percutaneous pinning, distal interphalangeal joint, 5th finger, right hand. ANESTHESIA: General. INDICATIONS: Russ is a 27-year-old male with a history of previous injury to his left knee resulting in an ACL tear. He has had persistent instability in the left knee since then. He did not undergo any reconstruction at the time of the injury. He has been having persistent and progressive sensation of instability as well as pain in the medial aspect of the knee. A recent MRI confirms chronic tear of the ACL as well as a complex tear of the medial meniscus. He now presents for ACL reconstruction and partial meniscectomy versus repair of the medial meniscus. He also has a history of traumatic injury to the right 5th finger resulting in amputation of the distal finger tip and a tuft fracture as well as extensor tendon rupture at its distal insertion with resulting mallet finger deformity. Due to the sensitivity of the finger with the fingertip amputation, he was not able to tolerate extension splinting and he now presents for percutaneous pinning of the IP joint in extension for treatment of the mallet finger. Risks, benefits, and potential complications of the procedure were discussed with the patient and his mother. All questions were answered. DESCRIPTION OF PROCEDURE: After adequate anesthesia was obtained, the patient was placed supine with a tourniquet about the left upper leg. The leg was then prepped and draped in a sterile fashion. Leg was exsanguinated and tourniquet inflated to 300 mmHg pressure. Examination under anesthesia revealed positive Noah, positive drawer, and positive pivot shift. A longitudinal incision was made from the inferior pole of the patella over the tibial tubercle. This was carried down through the subcutaneous tissues. Paratenon over the patellar tendon was divided and the tendon was exposed. Central cm of tendon was then harvested along with bone plugs from the inferior patella and tibial tubercle. Bone-patellar tendon-bone autograft was then fashioned on the back table to fit the bone plugs through a 10 mm spacer. Drill holes were made in the bone plugs and traction sutures were then placed. Graft was kept moist on the back table. Inferior medial and lateral portals were then established through the central incision. The scope was introduced and the patellofemoral joint was inspected. This revealed no abnormality of the articular cartilage of the patella or trochlear groove. Camera was then moved into the medial compartment where a complex tear of the medial meniscus was noted. This included a flap tear from the mid body to the anterior horn with a horizontal cleavage component. There was also meniscal capsular separation with instability of the meniscus and this could be displaced under the medial femoral condyle into the joint. A shaver was used to debride the flap portion of the tear in the anterior horn taking this back to a stable margin. The meniscal capsular junction was then roughened using combination of a probe and shaver. Three Mitek meniscal anchors were then placed, securing the meniscus to the capsule. After this was accomplished, the meniscus was probed and found to be very stable. Intercondylar notch revealed a chronic tear of the ACL with a small stump still present on the tibial tubercle and portion of it scarred to the PCL. A moderate A-frame notch was present. Examination of the lateral compartment revealed intact meniscus which was somewhat hypermobile, but no definitive tear was noted. Articular surfaces of the medial and lateral femoral condyles as well as medial and lateral tibial plateaus were intact. Stump of the torn ACL was debrided and the posterior aspect of the groove was delineated. A notchplasty was performed widening the intercondylar notch and allowing better visualization of the drop-off point. A tibial guide was then placed and a guide pin was then drilled through the medial metaphysis up into the notch. Position was confirmed arthroscopically. An 11 mm reamer was then placed over the guide pin and drilled into the joint. This was done under direct visualization and no penetration of the guide pin occurred posteriorly. Reamings and soft tissues were cleared from the superior portion of the tunnel. A curette was used to parmjit position for the femoral tunnel and a small depression was made. A guide pin was then advanced through the tibial tunnel to the position chosen in the femur and advanced superiorly and laterally out the cortex and then out the skin. This was then reamed to a depth of just short of 30 mm. The Mitek Rigidfix guide was then placed over the guide pin and placed to a depth of approximately 27 mm, corresponding to the length of the bone plug. Guide cannulas were then drilled into the lateral femoral condyle and the guide was removed. Patellar tendon graft was then delivered through the tibial tunnel and into the femoral tunnel under direct visualization. This was sunk flush with the tunnel. Keeping light tension on the graft, drill was placed through the lateral cannulas and across the bone plug. Transfixing pins were then tapped into position. Cannulas were removed. Tension was then placed on the graft through the tibial tunnel, no motion was present in the femoral tunnel. The knee was then taken through multiple cycles of flexion and extension, tensioning the graft. A guide pin was then placed into the tibial tunnel and the tunnel was tapped. With the knee held in slight flexion and a posterior drawer applied, tension was kept on the graft and a Mitek Sharla interference screw was placed with excellent purchase. Guide pin was removed. Testing of the knee following this revealed a negative Noah, negative drawer , and a negative pivot shift. Traction sutures were removed. The scope was reintroduced and all the loose remaining fragments were removed. Tension on the graft was confirmed. The graft was visualized with no impingement in the tunnel. Repair of the medial meniscus was again evaluated and found to be intact. The scope was then withdrawn and knee was drained. Paratenon was then closed over the patellar tendon defect after packing the bone defects with the remaining bone which had been removed when fashioning the bone plugs. The skin was closed with 2-0 Vicryl and a running 3-0 Monocryl. Steri-Strips were applied. The skin was infiltrated with Marcaine with epinephrine as was the joint for a total of 30 mL. A sterile dressing was then applied and a postoperative brace was placed, locked at 10 degrees of flexion. The drapes were removed and the right hand was then prepped and draped. The DIP joint was placed into slight hyperextension. A 0.035 K-wire was then placed down the shaft of the distal phalanx and under fluoroscopic guidance across the DIP joint into the middle phalanx. Position of the pin was confirmed on AP and lateral images. The pin was then cut and bent outside the skin. Prior to prepping, a digital block had been performed on the 5th finger using approximately 10 mL of Marcaine without epinephrine. Pin was dressed with Xeroform gauze and conform gauze. A plaster splint was then fashioned and applied over the sterile dressing. The patient tolerated both procedures. There were no complications. He was taken from the operating room in stable condition. Waldo Ragland MD /[id number] MTDD
== END 2018-08-16 15:10 | disposition home or self-care (01) ==
LOC: JP.SDS 07:14
PROVIDERS: ATTEND Specialist
DX: S83.512A Sprain of anterior cruciate ligament of left knee, initial encounter (principal); S83.232A Complex tear of medial meniscus, current injury, left knee, initial encounter; S66.316A Strain of extensor muscle, fascia and tendon of right little finger at wrist and hand level, initial encounter; M20.011 Mallet finger of right finger(s); S62.636A Displaced fracture of distal phalanx of right little finger, initial encounter for closed fracture; K21.9 Gastro-esophageal reflux disease without esophagitis; F17.210 Nicotine dependence, cigarettes, uncomplicated; X58.XXXA Exposure to other specified factors, initial encounter; Z88.0 Allergy status to penicillin; Z79.899 Other long term (current) drug therapy
CPT/HCPCS: 26432; 29882; 29888; A9270; C1713; J0330; J0690; J1100; J1885; J2370; J2405; J2704; J2710; J3010; J3490; J7120

== ENCOUNTER 2019-02-03 11:09 | Emergency (ER) | payer MEDICAID ==
[2019-02-03 11:32] VITALS: BP 112/78; PULSE 86
[2019-02-03] MEDS ORDERED: HYDROmorphone 0.5 MG/0.5 ML Syringe IVPUSH ONE (12:09)
[2019-02-03] MEDS ORDERED: cefTRIAXone 1 GM in Sodium Chloride 0.9% 50 ML IV ONE (12:10)
[2019-02-03] MEDS ORDERED: Sodium Chloride 0.9% 1,000 ML IV SCH (12:15)
--- NOTE | 2019-02-03 12:17 | EDM.PDOC ---
ED HPI GENERAL MEDICAL PROBLEM - General Chief Complaint: Skin Complaint Stated Complaint: PAIN IN THE NOSE Time Seen by Provider: 02/03/19 12:12 Source of Information: Reports: Patient History Limitations: Reports: No Limitations - History of Present Illness INITIAL COMMENTS - FREE TEXT/NARRATIVE: pt arrived with a markedly swollen and red rt side of the nose. He states at first it seemed to be inside the nose and he had pus drain from the inside of the nose. He now has a hole externally and when the nare is examined he has infection also in the top of the nare on the rt. The nose is red and inflamed. Onset: Gradual, Other ( this has been going on for 2-3 days. ) Duration: Hour(s): Location: Reports: Face Associated Symptoms: Reports: Other (pt has had chills and body aches since the nose is very red, ) nose Pain Score (Numeric/FACES): 7 - Related Data Allergies Allergy/AdvReac Type Severity Reaction Status Date / Time acetaminophen [From Vicodin] Allergy Hyperactivi Verified 02/03/19 11:33 ty hydrocodone [From Vicodin] Allergy Rash Verified 02/03/19 11:33 Home Meds: Home Meds clonazePAM [Klonopin] 1 mg PO TID PRN 02/03/19 [History] Past Medical History - Past Health History Medical/Surgical History: Denies Medical/Surgical History HEENT History: Reports: None Cardiovascular History: Reports: None Respiratory History: Reports: None Gastrointestinal History: Reports: GERD Other Gastrointestinal History: abdominal abscess with mrsa Genitourinary History: Reports: None Musculoskeletal History: Reports: Other (See Below) Other Musculoskeletal History: s/p L ACL repair and R 5th finger pinning 08/16/18 Neurological History: Reports: Concussion, Migraines, Vertigo Psychiatric History: Reports: Anxiety, Depression Endocrine/Metabolic History: Reports: None Hematologic History: Reports: None Immunologic History: Reports: None Oncologic (Cancer) History: Reports: None Dermatologic History: Reports: Other (See Below) Other Dermatologic History: abdominal abscess - Infectious Disease History Infectious Disease History: Reports: MRSA - Past Surgical History Head Surgeries/Procedures: Reports: None GI Surgical History: Reports: None Neurological Surgical History: Reports: None Musculoskeletal Surgical History: Reports: None, Arthroscopic Knee Social & Family History - Family History Family Medical History: Noncontributory - Tobacco Use Smoking Status *Q: Current Every Day Smoker Years of Tobacco use: 10 Packs/Tins Daily: 0.5 - Caffeine Use Caffeine Use: Reports: Energy Drinks, Soda - Recreational Drug Use Recreational Drug Use: Yes Recreational Drug Type: Reports: Marijuana/Hashish Recreational Drug Use Frequency: Weekly ED ROS GENERAL - Review of Systems Review Of Systems: See Below Constitutional: Reports: Chills, Malaise HEENT: Reports: Nose Pain, Other ( redness of the nose) Respiratory: Reports: No Symptoms Cardiovascular: Reports: No Symptoms Endocrine: Reports: No Symptoms GI/Abdominal: Reports: No Symptoms : Reports: No Symptoms Musculoskeletal: Reports: No Symptoms Skin: Reports: No Symptoms Neurological: Reports: No Symptoms ED EXAM, SKIN/RASH Exam: See Below Text/Narrative:: pt arrived with a markedly swollen and red rt side of the nose. He has a hole in the nose and when the nare is examined this appears to be a through and through infection. He has had Mrsa in the past. Exam Limited By: No Limitations General Appearance: Alert, Moderate Distress Ears: Normal TMs Nose: Other ( rt side of the nose is red and hot. There is a draing hole in the rt side of the nose. He has evodence the the infection extends full thickness. He has had MRSA in the past. ) Throat/Mouth: Normal Inspection Head: Atraumatic Neck: Normal Inspection Respiratory/Chest: No Respiratory Distress Cardiovascular: Regular Rate, Rhythm GI/Abdominal: Soft, Non-Tender (Male) Exam: Deferred Rectal (Males) Exam: Deferred Course - Vital Signs Last Recorded V/S: Last Vital Signs Temp 36.6 C 02/03/19 11:42 Pulse 86 02/03/19 11:42 Resp 16 02/03/19 11:42 BP 112/78 02/03/19 11:42 Pulse Ox 98 02/03/19 11:42 - Orders/Labs/Meds Labs: Laboratory Tests 02/03/19 02/03/19 Range/Units 11:49 11:49 WBC 6.6 (4.5-11.0) K/uL RBC 4.97 (4.30-5.90) M/uL Hgb 14.5 (12.0-15.0) g/dL Hct 43.7 (40.0-54.0) % MCV 88 (80-98) fL MCH 29 (27-31) pg MCHC 33 (32-36) % Plt Count 286 (150-400) K/uL Neut % (Auto) 69 H (36-66) % Lymph % (Auto) 15 L (24-44) % [place] % (Auto) 15 H (2-6) % Eos % (Auto) 1 L (2-4) % Baso % (Auto) 0 (0-1) % Sodium 137 L (140-148) mmol/L Potassium 3.6 (3.6-5.2) mmol/L Chloride 98 L (100-108) mmol/L Carbon Dioxide 27 (21-32) mmol/L Anion Gap 15.6 H (5.0-14.0) mmol/L BUN 15 (7-18) mg/dL Creatinine 1.0 (0.8-1.3) mg/dL Est Cr Clr Drug Dosing 102.10 mL/min Estimated GFR (MDRD) > 60 (>60) Glucose 123 H (74-106) mg/dL Calcium 8.8 (8.5-10.1) mg/dL Meds: Medications Discontinued Medications Generic Name Dose Route Start Last Admin Trade Name Freq PRN Reason Stop Dose Admin Bacitracin 1 dose 02/03/19 13:06 02/03/19 13:15 Bacitracin Oint 1 Gm TOP 02/03/19 13:07 1 dose ONETIME ONE Administration Hydromorphone HCl 0.5 mg 02/03/19 12:09 02/03/19 12:15 Dilaudid IVPUSH 02/03/19 12:10 0.5 mg ONETIME ONE Administration Sodium Chloride 1,000 mls @ 999 mls/hr 02/03/19 12:15 02/03/19 12:17 Normal Saline IV 999 mls/hr ASDIRECTED SHAQUILLE Administration Ceftriaxone Sodium 1 gm/ 50 mls @ 100 mls/hr 02/03/19 12:10 02/03/19 12:31 Sodium Chloride IV 02/03/19 12:39 100 mls/hr ONETIME ONE Administration - Re-Assessments/Exams Free Text/Narrative Re-Assessment/Exam: 02/03/19 12:20 an iv was started He was given normal saline rocephen, dilaudid. 02/03/19 12:57 wbc is normal. A culture is pending. Departure - Departure Time of Disposition: 12:58 Disposition: Home, Self-Care 01 Condition: Fair Clinical Impression: Cellulitis of nose - Discharge Information Instructions: Skin Abscess, Ybye-iw-Mcor Referrals: PCP,None [Primary Care Provider] - Forms: ED Department Discharge Care Plan Goals: clindamycin 300mg tid , norco 5/325 every 6 hour # 5, motrin 600mg every 6 hour as needed for pain Appt at [facility] on Thursday, Feb 07 with Ear Nose and throat--Dr Dial-- 2 forty five. . Sepsis Event Note - Evaluation Sepsis Screening Result: No Definite Risk - Focused Exam Date Exam was Performed: 02/07/19 Time Exam was Performed: 07:44
[2019-02-03] MEDS ORDERED: Bacitracin Oint 1 GM U/D Packet TOP ONE (13:06)
== END 2019-02-03 13:25 | disposition home or self-care (01) ==
LOC: JP.ED 11:09
DX: J34.0 Abscess, furuncle and carbuncle of nose (principal); F41.9 Anxiety disorder, unspecified; F32.9 Major depressive disorder, single episode, unspecified; F17.210 Nicotine dependence, cigarettes, uncomplicated; Z79.899 Other long term (current) drug therapy; Z88.5 Allergy status to narcotic agent
CPT/HCPCS: 36415; 80048; 85025; 87070; 87077; 87186; 87205; 96365; 96375; 99283; J0696; J1170; J7030; J7050